=== PATIENT | female | born 1930 | race Caucasian/White ===

== ENCOUNTER 2016-12-21 13:11 | Inpatient (IN) | payer OTHER ==
[~2016-12-21] VITALS: Ht 162.6 cm; Wt 74.1 kg
--- NOTE | ~2016-12-21 | EKG ---
[address] [place] [address] ELECTROCARDIOGRAM REPORT Name: LAWSON BRASWELL Room #: 217-P [facility] IN .R.#: [id number] Admission: 12/21/16 Attend Phys: Sean Harding MD Discharge: Date of : 30 Report #: [id number] THIS REPORT FOR: //name// 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 : 1930 Requested By: Apolinar Esparza Order Number: [id number] MD: Anthony Sommer Measurements Intervals [place] Rate: 98 P: 5 ID: 137 QRS: -28 QRSD: 87 T: 47 QT: 336 QTc: 430 Interpretive Statements Sinus rhythm Inferior infarct, old Compared to ECG 09/22/2016 17:07:46 No significant changes Electronically Signed On 12-22-2016 9:02:50 INSURANCE CLAIM REPRESENTATIVE by Anthony Sommer [email or web address] <ELECTRONICALLY SIGNED> By: Anthony Sommer MD, [facility] 12/22/16 0902 1412 141 Anthony Sommer MD, [facility] /EPI
--- NOTE | ~2016-12-21 | P ---
[facility] [place] [address] PROCEDURE REPORT Name: LAWSON BRASWELL Room #: 243-P [facility] IN .R.#: [id number] Admission: 12/21/16 Attend Phys: Sean Harding MD Discharge: Date of : 30 Report #: [id number] THIS REPORT FOR: //name// CC: FAM vernon Harding MD DATE OF SERVICE: 12/23/2016 INDICATION: Left lung infiltrate, persistent with possible left lung mass and plugging in the lingular bronchus, ASA classification class 3. PROCEDURE NOTATION: After discussing risks and benefits of planned procedure as best I could with the patient due to hearing difficulties, discussed with family who is at the bedside, who agreed to proceed, the patient was brought to the OR room 349, received 4% lidocaine nebulized to anesthetize the upper respiratory tract. The patient received conscious sedation, a total of 1 mg of Versed and 12.5 mg of fentanyl were utilized during the procedure to provide adequate sedation. Once complete, bronchoscope was passed through an oral biteblock until the vocal cords were visualized. Vocal cords moved appropriately both before and after the procedure, 1% lidocaine was instilled in the vocal cords to provide topical anesthesia. Bronchoscope was then passed in the trachea, 1% lidocaine was instilled in the tracheobronchial tree bilaterally to provide topical anesthesia once complete airways were surveyed. FINDINGS: Mainstem, lobar, segmental and subsegmental bronchi were explored as best as possible. Right-sided structures appeared normal, with no significant anatomic variation. The right lower lobe structures appeared normal except for thin white secretions noted emanating from the left lower lobe bronchus. The left upper lobe had some lingular edema. There appeared to be a yellow abnormality to the inferior lingular bronchus. Protected specimen brush was obtained in the area of the left lower lobe with thin white secretions emanating. Cytologic brushes and biopsies were obtained in the lingular airways and sent for cytologic and histopathologic test. Washings from this area were sent for cultures and cytology. The patient had some hypertension and reverted back to atrial fibrillation with rapid ventricular response post-procedure. The patient's fluid bolused to 500 mL and transferred to ICU for further care. <ELECTRONICALLY SIGNED> By: Tony Colbert MD 12/24/16 1122 1732 0133 Tony Colbert MD /nt
--- NOTE | ~2016-12-21 | CNG ---
[facility] [place] [address] CYTO-NONGYN REPORT PROCEDURE Name: FRANC BRASWELL Room #: 217-P ADM IN M.R.#: [id number] Admission: 12/21/16 Date of : 30 Discharge: Report #: [id number] Path Case #: [id number] CYTOPATHOLOGY REPORT COLLECTION DATE: 12/23/2016 RECEIVED DATE: 12/24/2016 SUBMITTING PHYS: Dr. Tony Colbert OTHER PHYS: Dr. Sean Harding CLINICAL HISTORY: Pneumonia/ AFIB RVR. SPECIMEN(S) RECEIVED: A.Bronchial brushings, RADHA B.Bronchoalveolar lavage, RADHA C.Bronchial brush rinse, RADHA * * * * * * * * * * * * FINAL DIAGNOSIS: A. Bronchial brushings, RADHA: Atypical cells identified. - Atypical/highly reactive bronchial epithelial cells and squamous cells identified in a marked acute inflammatory cell background. B. Bronchoalveolar lavage, RADHA: - No malignant cells identified. -Few reactive bronchial cells in a marked acute inflammatory cell background. C. Bronchial brush rinse, RADHA: Atypical cells identified. - Atypical/highly reactive bronchial epithelial cells and squamous cells identified in a marked acute inflammatory cell background. COMMENT: Cytomorphological evaluation is limited by the obscuring acute inflammation/necroinflammatory debris and air-drying artifact. Atypical epithelial cells are identified amongst highly reactive bronchial epithelial cells and unremarkable bronchial epithelial cells. The atypia is favored to be reactive. Clinical, bronchoscopic and radiographic correlation is required. Please see also the bronchial biopsy ([id number]). The case was discussed with Dr. Amalia Colbert on 12/27/16 at approximately 3:45 PM. (CLW:wale; d/t: 12/27/2016) PATHOLOGIST: Glendy Crow M.D. REPORT ELECTRONICALLY SIGNED BY: Glendy Crow M.D. DATE/TIME: 12/27/2016 16:13 * * * * * * * * * * * * GROSS PATHOLOGY: A. Bronchial brushings, RADHA: The specimen is labeled "Franc Braswell [address] [address] CYTO-NONGYN REPORT PROCEDURE Name: FRANC BRASWELL Room #: 217-P [facility] IN [facility]#: [id number] Admission: 12/21/16 Date of : 30 Discharge: Report #: [id number] Path Case #: [id number] A" and consists of four fixed slides. B. Bronchoalveolar lavage, RADHA: The specimen is submitted unfixed, labeled "Franc Braswell". Received by the Cytology Department is five mL of cloudy pink fluid. One ThinPrep slide was prepared. C. Bronchial brush rinse, RADHA: The specimen is labeled "Franc Braswell Ar" and consists of a brush tip in fixative. One ThinPrep slide was prepared. (CLT 12.24.2016) SHOPPER(S): CHILANGO Gary(ASCP) INITIAL CPT CODE(S): A; 78890 B; 36816 C; 58716 Professional services performed by [facility] at [facility] [address], [place] [address] Technical services performed by [facility] at [address] [place] [address], [address], [place] [address]. [facility] [address] [place] [address], [address] [place] [address] PHONE: [phone] DIRECTOR: Rocael Barnhart M.D. * * * END OF REPORT * * *
--- NOTE | ~2016-12-21 | S ---
[facility] [place] [address] SURGICAL PATH RPT PROCEDURE Name: FRANC BRASWELL Room #: 217-P ADM IN M.R.#: [id number] Admission: 12/21/16 Date of : 30 Discharge: Report #: [id number] Path Case #: [id number] PATHOLOGY REPORT COLLECTION DATE: 12/23/2016 RECEIVED DATE: 12/24/2016 SUBMITTING PHYS: Dr. Tony Colbert OTHER PHYS: Dr. Sean Harding SPECIMEN(S) RECEIVED: A.Left upper lobe biopsy forceps * * * * * * * * * * * * FINAL DIAGNOSIS: "Left upper lobe biopsy forceps", bronchial biopsy: - Bronchial wall with benign ciliated respiratory epithelium, detached metaplastic squamous epithelium and areas of acute and chronic inflammation, necrosis, granulation tissue and fibrin deposition. (See comment) COMMENT: The focal metaplastic squamous epithelium that is noted is also acutely inflamed. No epithelial malignancy is identified. No polarizable material is identified. Clinical and radiographic correlation is required. Please see also the cytologic specimen ([id number]). The case is discussed with Dr. Amalia Colbert on 12/27/16 at approximately 3:45 PM. (CLW:wale; d/t: 12/27/2016) PATHOLOGIST: Glendy Crow M.D. REPORT ELECTRONICALLY SIGNED BY: Glendy Crow M.D. DATE/TIME: 12/27/2016 16:20 * * * * * * * * * * * * GROSS PATHOLOGY: The specimen is received in formalin labeled "Franc Eugenew, biopsy forceps," and verified is "RADHA biopsy" via phone. Received are multiple segments of pale turner soft tissue measuring 0.4 x 0.4 x 0.1 cm in aggregate dimensions. The specimen is filtered and entirely submitted in cassette A1. (CAA; 12/24/2016) CLINICAL HISTORY: Pneumonia, AFIB RVR [facility] [address] [address] SURGICAL PATH RPT PROCEDURE Name: FRANC BRASWELL Room #: 217-P ADM IN ..#: [id number] Admission: 12/21/16 Date of : 30 Discharge: Report #: [id number] Path Case #: [id number] INITIAL CPT CODE(S): A; 72516 Professional services performed by [facility] at [address], [place] [address] Technical services performed by [facility] at [address] [place] [address], [facility] [address] [place] [address]. [facility] [address] [place] [address] PHONE: [phone] DIRECTOR: Rocael Barnhart M.D. * * * END OF REPORT * * *
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
--- NOTE | ~2016-12-21 | EKG ---
[address] [address] ELECTROCARDIOGRAM REPORT Name: LAWSON BRASWELL Room #: 217-P [facility] IN .R.#: [id number] Admission: 12/21/16 Attend Phys: Sean Harding MD Discharge: Date of : 30 Report #: [id number] THIS REPORT FOR: //name// [facility] Test Date: 2016-12-22 Test Time: 08:16:28 Pat Name: LAWSON BRASWELL Department: Room: 217 Gender: F Glove Pairer: Areli IRIZARRY : 1930 Requested By: Katherine Watkins Order Number: [id number] MD: Anthony Sommer Measurements Intervals [place] Rate: 76 P: 28 DE: 140 QRS: 6 QRSD: 97 T: 40 QT: 429 QTc: 483 Interpretive Statements Sinus rhythm No significant abnormality Compared to ECG 09/22/2016 17:07:46 Myocardial infarct finding no longer present Sinus rhythm has replaced atrial fibrillation Electronically Signed On 12-22-2016 9:14:12 GUEST RELATION OFFICER by Anthony Sommer [email or web address] <ELECTRONICALLY SIGNED> By: Anthony Sommer MD, [facility] 12/22/16913 5 5 Anthony Sommer MD, [facility] /EPI
--- NOTE | ~2016-12-21 | EKG ---
[place] [address] [address] [place] [address] ELECTROCARDIOGRAM REPORT Name: LAWSON BRASWELL Room #: 243-P [facility] IN .R.#: [id number] Admission: 12/21/16 Attend Phys: Sean Harding MD Discharge: Date of : 30 Report #: [id number] THIS REPORT FOR: //name// [facility] Test Date: 2016-12-23 Test Time: 17:31:25 Pat Name: LAWSON BRASWELL Department: Room: [facility] Gender: F Speech Language Pathologist Prn: Karma GORE : 1930 Requested By: Tony Colbert Order Number: [id number] MD: Anthony Sommer Measurements Intervals [place] Rate: 159 P: 0 CO: 76 QRS: -13 QRSD: 85 T: 120 QT: 295 QTc: 480 Interpretive Statements Atrial fibrillation with a rapid ventricular response Nonspecific ST and T wave abnormality Compared to ECG 12/22/2016 08:16:28 Atrial fibrillation has replaced sinus rhythm Electronically Signed On 12-24-2016 8:48:50 SENIOR SALESFORCE DEVELOPER by Anthony Sommer [email or web address] <ELECTRONICALLY SIGNED> By: Anthony Sommer MD, [facility] 12/24/16 0848 1731 173 Anthony Sommer MD, [facility] /EPI
--- NOTE | ~2016-12-21 | EKG ---
[address] [address] ELECTROCARDIOGRAM REPORT Name: LAWSON BRASWELL Room #: 243-P [facility] IN .R.#: [id number] Admission: 12/21/16 Attend Phys: Sean Harding MD Discharge: Date of : 30 Report #: [id number] THIS REPORT FOR: //name// [facility] Test Date: 2016-12-23 Test Time: 07:58:55 Pat Name: LAWSON BRASWELL Department: Room: [facility] Gender: F Asw Specialist: Areli IRIZARRY : 1930 Requested By: Sean Harding Order Number: [id number] MD: Anthony Sommer Measurements Intervals [place] Rate: 85 P: 45 SD: 134 QRS: 9 QRSD: 91 T: 50 QT: 396 QTc: 471 Interpretive Statements Sinus rhythm No significant abnormality Compared to ECG 12/22/2016 08:16:28 No significant changes Electronically Signed On 12-24-2016 8:31:08 ART CRITIC by Anthony Sommer [email or web address] <ELECTRONICALLY SIGNED> By: Anthony Sommer MD, [facility] 12/24/16 0831 075 075 Anthony Sommer MD, FAC /EPI
--- NOTE | ~2016-12-21 | 2DMMODE ---
[facility] [address] [place] [address] 2 D/M-MODE ECHOCARDIOGRAM Name: LAWSON BRASWELL Room #: 217-P [facility] IN [facility]#: [id number] Admission: 12/21/16 Attend Phys: Sean Harding, Discharge: Date of : 30 Date of Service: 12/22/16 1027 Report #: [id number] THIS REPORT FOR: //name// APPROVED REPORT EXAM: Comprehensive 2D, Doppler, and color-flow Echocardiogram Patient Location: In-Patient/Bedside Room 217 Blood Pressure: 128/56 mmHg HR: 74 bpm Rhythm: NSR Other Information Study Quality: Good Indications Atrial Fibrillation Hx: COPD 2D Dimensions RVDd: 36.42 mm LVEF(%): 57.63 (>50%) IVSd: 9.73 (7-11mm) LVOT Diam: 19.95 (18-24mm) LVDd: 42.68 mm PWd: 8.71 (7-11mm) Ascending Aorta: 38.00 mm LVDs: 29.85 (25-40mm) Aortic Root: 31.00 mm [place]'s LVEF: 57.63 % Volumes Left Atrial Volume (Systole) Single Plane 4CH: 45.64 mL Single Plane 2CH: 55.22 mL LA ESV Index: 32.00 mL/m2 Aortic Valve AoV Peak Jose J.: 1.79 m/s AO Peak Gr.: 12.87 mmHg LV Max P.21 mmHg LV Max: 1.25 m/s Mitral Valve MV PHT: 52.42 ms MV E Max Jose J.: 1.10 m/s E/A Ratio: 1.0 MV A Jose J.: 1.15 m/s MV Decel. Time: 180.76 ms [facility] [place] [address] [place] [address] 2 D/M-MODE ECHOCARDIOGRAM Name: LAWSON BRASWELL Room #: 217-P [facility]#: [id number] Admission: 12/21/16 Attend Phys: Sean Harding, Discharge: Date of : 30 Date of Service: 12/22/16 1027 Report #: [id number] TDI E/Lateral E': 15.00 E/Medial E': 14.00 Pulmonary Valve PV Peak Jose J.: 0.79 m/s PV Peak Gr.: 2.47 mmHg Tricuspid Valve TR Peak Jose J.: 2.80 m/s RAP Estimate: 10.00 mmHg TR Peak Gr.: 31.33 mmHg RVSP: 41.00 mmHg Left Ventricle The left ventricle is normal size. There is normal LV segmental wall motion. There is normal left ventricular wall thickness. Left ventricular systolic function is normal. LVEF is 50-55%. Mild diastolic dysfunction is present (impaired relaxation pattern). Right Ventricle The right ventricle is normal size. The right ventricular systolic function is normal. Atria Left atrium is borderline dilated. The right atrium size is normal. Aortic Valve Aortic valve is mildly calcified. Trace aortic regurgitation. There is no aortic valvular stenosis. Mitral Valve There is mitral annular calcification. Mild regurgitation. Tricuspid Valve The tricuspid valve is normal in structure. There is mild tricuspid regurgitation. The right atrial pressure is estimated at 10 mmHg. Right ventricular systolic pressure is estimated at 41 mmHg. There is mild-moderate pulmonary hypertension. Pulmonic Valve The pulmonary valve is normal in structure. Trace pulmonic regurgitation. Great Vessels The aortic root is normal in size. Ascending aorta is mildy dilated. The IVC is dilated. [facility] [address] [place] [address] 2 D/M-MODE ECHOCARDIOGRAM Name: LAWSON BRASWELL Room #: 217-P [facility] IN ..#: [id number] Admission: 12/21/16 Attend Phys: Sean Harding, Discharge: Date of : 30 Date of Service: 12/22/16 1027 Report #: [id number] Pericardium There is no pericardial effusion. <Conclusion> Left ventricular systolic function is normal. LVEF is 50-55%. Grade I diastolic dysfunction Left atrium is borderline dilated. Aortic valve is mildly calcified, no stenosis. Trace insufficiency There is mitral annular calcification. Mild regurgitation. There is mild tricuspid regurgitation. The right atrial pressure is estimated at 10 mmHg. Right ventricular systolic pressure is estimated at 40 mmHg. There is no pericardial effusion. <ELECTRONICALLY SIGNED> By: Anthony Sommer MD, FACC 12/22/16 1027 1027 1027 Anthony Sommer MD, FAC /INF
--- NOTE | ~2016-12-21 | HC ---
[facility] [place] [address] CONSULTATION Name: LAWSON BRASWELL Room #: 217-P [facility] IN M.R.#: [id number] Admission: 12/21/16 Attend Phys: Sean Harding MD Discharge: 12/29/16 Date of : 30 Report #: [id number] THIS REPORT FOR: //name// CC: FAM unknown Sean Harding DATE OF SERVICE: 12/24/2016 HISTORY OF PRESENT ILLNESS: This lady is actually known to me from a consult performed a number of years ago. The lady indeed does suffer from paranoid schizophrenia, but agree with Dr. Harding's description that it has been fairly mild, in that, she has been well compensated most of her life with medication and able to function with relatively little dysfunction or pathology. It appears that here lately, she has developed delirium and encephalopathy with respect to malnutrition and pneumonia. They have stopped her Seroquel because of concerns of a cardiac nature, I believe. The patient is confused, unable to really interact with me much. She is fixated upon the compression stockings. PAST PSYCHIATRIC HISTORY: The patient does have a long-standing psychiatric illness. She was seen by us on the consultation service all the way back in 2011. At that time, we opined that changing from Mellaril to Seroquel would be improvement from the standpoint of sedation and bradykinesia. I believe, she has been on Seroquel ever since and it appears that she has functioned quite well on this medication. It is not clear to me if she was continuing to simply get the Seroquel from Dr. Harding or if she was actually followed up with a psychiatrist. PAST MEDICAL HISTORY: She has a complex medical history that includes pneumonia, history of asthma, currently suffering from encephalopathy, GI bleed, malnutrition, respiratory failure, B12 deficiency, renal failure and chronic kidney disease. SOCIAL HISTORY: I believe she has a caregiver. She was kicked out of the house by her father and was essentially adopted into a family with the surname "Jhonny". She has been Dr. Harding's patient for many decades. He has nicely summarized the patient's psychiatric and psychosocial history. Presumably, the "parents" who "adopted" the patient would now be , but I believe that her "step-siblings" continue to interact with and keep tract for her. It is not completely clear to me who is her primary caregiver or support system at this time. There are no active substance abuse issues. CURRENT MEDICATIONS: Her current regimen had included Seroquel and Depakote and I believe the Seroquel has just been held now. She was also on nystatin, Requip, Solu-Medrol and metoprolol. ALLERGIES: PENICILLIN, CEPHALOSPORIN, CEPHALEXIN and AMBIEN. [facility] [address] [place] [address] CONSULTATION Name: LAWSON BRASWELL Room #: 217-P [facility] IN M.R.#: [id number] Admission: 12/21/16 Attend Phys: Sean Harding MD Discharge: 12/29/16 Date of : 30 Report #: [id number] MENTAL STATUS EXAMINATION: female, confused, somewhat internally preoccupied, disorganized thought process. No suicidal ideation, no homicidal ideation. Some hallucinations earlier, I believe, per the medical record, but not now. Insight and judgment limited. DIAGNOSES: AXIS I: Encephalopathy, chronic paranoid schizophrenia. AXIS II: Deferred. AXIS III: See past medical history. AXIS IV: Severe. AXIS V: 20. RECOMMENDATIONS: I agree with holding Seroquel right now if there are cardiac concerns, though a lower dose may be useful in delirium, especially if there is worsening insomnia, agitation, impulsivity or psychosis. If she tolerates the Depakote, we could also titrate up on this agent. It does not appear she is having or will have any ill effects from this, as hepatic function seems adequate. There is a history of adverse drug reaction to Haldol. So, Depakote may be a better choice at this time and when she clears from the delirium, may need to consider antipsychotic other than Seroquel. Though she has been on this medication a long time, it is possible she is not tolerating more so because of concurrent delirium. <ELECTRONICALLY SIGNED> By: Bartolo Long MD 12/31/16 1512 1035 1242 Bartolo Long MD /nt
--- NOTE | ~2016-12-21 | HC ---
[facility] [place] [address] CONSULTATION Name: LAWSON BRASWELL Room #: 217-P [facility] IN ..#: [id number] Admission: 12/21/16 Attend Phys: Sean Harding MD Discharge: Date of : 30 Report #: [id number] THIS REPORT FOR: //name// CC: FAM unknown Sean Harding DATE OF SERVICE: 12/23/2016 INFECTIOUS DISEASE CONSULTATION ATTENDING PHYSICIAN: Sean Harding M.D. REASON FOR CONSULTATION: Cavitary pneumonia. HISTORY OF PRESENT ILLNESS: An 86-year-old white woman admitted through the emergency room with altered mental status, found to be having left lower lobe pneumonia and atrial fibrillation with rapid ventricular response. The patient, on admission, had significant leukocytosis with broad spectrum antibiotic; this is improved. A CT scan of the chest was ordered by Dr. Colbert and revealed left-sided cavitary pneumonia. On account of this, ID opinion is requested. At present, the patient is sitting and having lunch delivered to her and I discussed the patient's situation with her nurse, Laisha, and I believe the patient needs to have a speech evaluation. The patient unable to give me any information whatsoever. PAST MEDICAL HISTORY: COPD - bronchial asthma. 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 Schizophrenia. Depression. Chronic iron-deficiency anemia. History of duodenal arteriovenous malformation, gastrointestinal bleed in the past. Previous episode of esophagitis. Paroxysmal atrial fibrillation. Diabetes mellitus type 2. Recurrent tubular adenomas. DRUG ALLERGIES: MOXIFLOXACIN, ADVAIR, CEPHALEXIN, PENICILLIN and ZOLPIDEM. SOCIAL HISTORY: No tobacco. No alcohol. The patient has developed progressive cognitive impairment. MEDICATIONS: The patient is on treatment with vancomycin 500 mg IV every 12 hours, meropenem 500 mg IV every 8 hours and methylprednisolone 40 mg IV every 12 hours. The vancomycin was discontinued today. The patient is on 250 mg b.i.d., nystatin topical to rash, ropinirole 0.5 mg p.o. b.i.d., quetiapine fumarate 600 mg at bedtime, enoxaparin 60 mg subQ b.i.d., diltiazem 240 mg daily and magnesium and potassium supplementation per protocol. REVIEW OF SYSTEMS: Unable to obtain. PHYSICAL EXAMINATION: [address] [address] CONSULTATION Name: LAWSON BRASWELL Room #: 217-P [facility] IN .R.#: [id number] Admission: 12/21/16 Attend Phys: Sean Harding MD Discharge: Date of : 30 Report #: [id number] GENERAL: Elderly woman, not toxic looking. VITAL SIGNS: Temperature maximum recorded since admission is 99.8; pulse on admission 174, today it is down to 89 per minute; respirations 20 and BP 156/77. The patient is on nasal supplementation of oxygen at 2 liters per minute and saturations are 93%. HEENT: Head normocephalic and atraumatic. Pupils reactive. Mouth edentulous. NECK: Supple. LUNGS: Crackles, left lung base. HEART: S1, S2. No gallop. ABDOMEN: Soft. No masses or megaly. PELVIC AND RECTAL EXAMINATION: Deferred. EXTREMITIES: No clubbing or cyanosis. NEUROLOGIC: Unable to evaluate. LABORATORY DATA: Sodium 139, potassium 3.3, BUN 24, creatinine 1.1 and glucose 200. Albumin 1.6 g/dL. Protime 13.4 seconds, INR 1.3. On admission, white blood cell count 26,200, hemoglobin 10.5 g/dL and platelets 368,000. Repeat CBC today revealed her white blood cell count has dropped to 16,900. There is a drop of hemoglobin up to 9.7 g/dL and platelets remain normal at 279,000. There is a vancomycin trough obtained today at 12. The MRSA screen is negative. The respiratory viral panel by PCR is pending at the time of this dictation. Vitamin D level low. Urinalysis revealed proteinuria, ketonuria, possibly bilirubin, 3+ blood. The microscopic exam revealed pyuria and bacteriuria. The ABGs on admission revealed a pH of 7.48, pCO2 of 33, pO2 of 57 and bicarbonate 25. These set of gases is on room air. MICROBIOLOGY DATA: Urine negative for Legionella and Streptococcus pneumoniae antigen and blood cultures remain negative at the time of this dictation. RADIOLOGY EVALUATION: A chest x-ray done on admission revealed extensive pneumonia, left upper and lower lung. CT scan of the brain revealed severe periventricular white matter disease that has progressed since last CT in 2013. [address] CT scan of the chest revealed extensive left upper lobe infiltrate with thick-walled cavitary lesions on the lingula and possible pulmonary abscess necrotic tumor. A small left pleural effusion and moderate hiatal hernia. ASSESSMENT: 1. Cavitary pneumonia, left lung. Rule out endobronchial lesion. 2. Chronic obstructive pulmonary disease, bronchial asthma. 3. Microvascular dementia. 4. Anemia of chronic disease. 5. Malnutrition. 6. Possible urinary tract infection. SUGGESTIONS: At present, the likely organism causing the patient's pneumonia is an anaerobic organism. Her MRSA screen was negative. Consequently, I agree [facility] [address] [place] [address] CONSULTATION Name: LAWSON BRASWELL Room #: 217-P ADM IN [facility].#: [id number] Admission: 12/21/16 Attend Phys: Sean Harding MD Discharge: Date of : 30 Report #: [id number] with discontinuation of vancomycin. Must continue meropenem. We will get speech therapist to evaluate the patient. Discussed the patient's situation with the patient's nurse, Laisha and we will discuss situation with Dr. Harding. Dr. Sean Harding, thank you for requesting my suggestions in the care of your patient. <ELECTRONICALLY SIGNED> By: Mickey Corado MD 12/24/16 1225 1238 1336 Mickey Corado MD /nt
--- NOTE | ~2016-12-21 | EKG ---
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 : 1930 Requested By: Apolinar Esparza Order Number: [id number] MD: Anthony Sommer Measurements Intervals [place] Rate: 173 P: WI: QRS: -24 QRSD: 80 T: 137 QT: 280 QTc: 475 Interpretive Statements Atrial fibrillation with rapid V-rate Inferior infarct, old Nonspecific ST segment abnormality Compared to ECG 09/22/2016 17:07:46 Sinus rhythm no longer present ST and T wave abnormalities are present Electronically Signed On 12-22-2016 9:04:25 CALL CENTER RN by Anthony Sommer [email or web address] <ELECTRONICALLY SIGNED> By: Anthony Sommer MD, [facility] 12/22/16 0904 1620 1620 Anthony Sommer MD, [facility] /EPI
--- NOTE | ~2016-12-21 | EKG ---
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 : 1930 Requested By: Katherine Watkins Order Number: [id number] MD: Anthony Sommer Measurements Intervals [place] Rate: 71 P: -3 [place]: 154 QRS: -21 QRSD: 81 T: 58 QT: 437 QTc: 475 Interpretive Statements Sinus rhythm Inferior infarct, old Anterior infarct, old Compared to ECG 12/23/2016 17:31:25 Sinus rhythm has replaced atrial fibrillation Electronically Signed On 12-29-2016 8:10:14 DEVELOPMENT ANALYST by Anthony Sommer [email or web address] <ELECTRONICALLY SIGNED> By: Anthony Sommer MD, [facility] 12/29/16 0810 1006 1006 Anthony Sommer MD, [facility] /EPI
--- NOTE | ~2016-12-21 | HC ---
[facility] [place] [address] CONSULTATION Name: LAWSON BRASWELL Room #: 243-P ADM IN M.R.#: [id number] Admission: 12/21/16 Attend Phys: Sean Harding MD Discharge: Date of : 30 Report #: [id number] THIS REPORT FOR: //name// CC: FAM unknown Sean Harding MD DATE OF SERVICE: 12/21/2016 REFERRING PROVIDER: Sean Harding MD REASON FOR CONSULTATION: Pulmonary infiltrates. HISTORY OF PRESENT ILLNESS: Our group was asked to see the patient in consultation while hospitalized at [facility], brought to the emergency department, records unclear, brought in by emergency medical service, has had altered mental status, confusion and had been somewhat incontinent. . According to the EMS, the patient was found to have altered mental status, found by a friend. In the emergency department was noted to have significant left lung infiltrates as well as atrial fibrillation with rapid ventricular response and had been given vancomycin, Zosyn as well as diltiazem. Currently on diltiazem drip to control heart rate. The patient is very confused but does not appear distressed upon my evaluation. Upon my arrival, the patient was on no supplemental oxygen. No oximetry monitoring ongoing. ALLERGIES: Include CEPHALOSPORINS, PENICILLINS, AMBIEN. OUTPATIENT MEDICATIONS: Include ropinirole, divalproex, diltiazem, cyanocobalamin, tolterodine, meloxicam, albuterol, aspirin, zafirlukast, quetiapine, supplemental oxygen and possibly prednisone. PAST MEDICAL HISTORY: 1. Schizophrenia. 2. Persistent asthma and COPD. 3. Chronic hypoxemia. SOCIAL HISTORY: Unobtainable due to current status. FAMILY HISTORY: Unobtainable due to current neurologic status. REVIEW OF SYSTEMS: Otherwise, unobtainable due to current neurologic status. PHYSICAL EXAMINATION: VITAL SIGNS: Afebrile, pulse 120s and regular, respiratory rate 18, blood pressure 123/79. GENERAL: This is an elderly woman in no distress. [address] [address] CONSULTATION Name: LAWSON BRASWELL Room #: 243-P [facility] IN M.R.#: [id number] Admission: 12/21/16 Attend Phys: Sean Harding MD Discharge: Date of : 30 Report #: [id number] ENT: Mucosa moist with edentulous mouth. NECK: Supple, no lymphadenopathy. LUNGS: Diminished markedly on the left. The patient cannot cooperate with deep inspiratory efforts. HEART: Irregular. No murmurs noted. ABDOMEN: Obese, soft, nontender, no masses. EXTREMITIES: Without significant edema. They are warm with 2+ pulses. LABORATORY DATA: White blood cell count 26,000, hemoglobin 11, hematocrit 33, platelet count 368. Chemistry profile revealed sodium 134, potassium 3.7, chloride 97, bicarbonate 24, BUN 20, creatinine 1.3, glucose 135. Arterial blood gas revealed pH 7.49, pCO2 of 34, pO2 of 58, bicarbonate 25. Lactate was 1.55 on room air. Urinalysis revealed proteinuria, ketonuria. White blood cells in the urine is 16-25. INR 1.3. IMPRESSION: 1. Left mid lung infiltrate noted on chest radiograph with significant opacification in this area. There also appears to be a small left pleural effusion. Will need to be followed and treated for pneumonia. 2. Probable urinary tract infection. 3. Atrial fibrillation with rapid ventricular response. 4. Altered mental status, likely combination of above, probably some underlying dementia. 5. Schizophrenia. 6. Hard of hearing. SUGGEST: 1. Continue with broad-spectrum antimicrobials. The patient actually did not receive Zosyn, but received Levaquin, vancomycin, azithromycin. Would change Levaquin and meropenem for now. 2. Sputum and blood cultures, urine cultures. 3. Steroids with taper. 4. Bronchodilators. 5. Follow up chest radiograph. 6. The patient may need thoracentesis if significant pleural effusion develops. 7. Defer atrial fibrillation management to cardiology. 8. Continuous oximetry monitoring and supplemental oxygen. 9. Additional recommendations to follow. Thank you for requesting our suggestions. <ELECTRONICALLY SIGNED> By: Tony Colbert MD 12/24/16 1123 2046 2335 Tony Colbert MD /nt
--- NOTE | ~2016-12-21 | D ---
[facility] [place] [address] DISCHARGE SUMMARY Name: LAWSON BRASWELL Room #: 217-P [facility] IN ..#: [id number] Admission: 12/21/16 Attend Phys: Sean Harding MD Discharge: 12/29/16 Date of : 30 Report #: [id number] THIS REPORT FOR: //name// CC: FAM unknown Sean Harding DATE OF SERVICE: 12/29/2016 SUMMARY OF HISTORY AND PHYSICAL: Nurse Special state they were called to their house because the patient had a change in level of consciousness for about 3 hours. When she was brought to the Emergency Room, she was found to have been incontinent of urine and stool. On examination, there was normal lung findings on the left hand side superior and inferior with decreased breath sounds and wheezes and consolidative breath sounds. Chest x-ray indicated infiltrates on the left side. She was hypoxic. She required admission for treatment of acute respiratory failure and/or pneumonia. Also, in the Emergency Room, she developed rapid ventricular response to atrial fibrillation. This occurred and was documented while she was in the Emergency Room. She has had this before when she has been ill, and this mandated her being admitted to a critical care telemetry bed. SUMMARY OF HOSPITAL COURSE: Severe sepsis was present on admission: known infection with pueumonia, tachycardia of 174, tachypnea 24 (>20), anion gap 13 (>11), leukocytosis 26K, qualified for severe with organ dysfunction PaO2 57.6, increased anion gap, and altered mental status. Over the next several days, her hypoxemia, improved, her white blood cell count improved, and she received intravenous antibiotics and aerosolized bronchodilator treatments for pneumonia under the direction of the Pulmonary Medicine Service. CT showed a left lingular infiltrate and atelectasis, possible mass, possible cavitation with suggestion of an endobronchial obstruction. She then underwent bronchoscopy, what appeared to be an endobronchial lesion, was actually able to be pushed against a think white secretions issued fourth. Brushings and washings and cultures were obtained. During the procedure, the patient redeveloped atrial fibrillation with rapid ventricular response, was bolused with 500 mL of saline and transferred to the Intensive Care Unit for further care. In the Intensive Care Unit best percussion was added and she was treated with IV [facility] [address] [place] [address] DISCHARGE SUMMARY Name: LAWSON BRASWELL Room #: 217-P [facility] IN [facility].#: [id number] Admission: 12/21/16 Attend Phys: Sean Harding MD Discharge: 12/29/16 Date of : 30 Report #: [id number] Cardizem IV amiodarone under the direction of cardiology service with a return of her rate to acceptable levels. Next, day, she was much better. Urine retention was noted and she was straight cathed as needed. She steadily improved. Psychiatric services assisted with choosing and dosing her medications. Her Depakote levels were quite low and it was felt that the meropenem antibiotic might be lowering the levels, according to research done from the Department of the hospital pharmacy staff. She developed several days of loose stools, C. diff test were negative, and loose stools resolved. She began to eat well. She had less problems with hearing voices. It was determined that the patient was starting to hear voices. Information then became available from Flex Barry, the , the official power of patent attorney/caregiver, santino lockhart, that the patient had been ill for about 10 days before the paramedics were called. She said "it just finally got to the point where somebody had to some things, so I called 911." It seemed like she was off all of her medications for the 10 days or so before coming to the hospital with her cavitary pneumonia. She went back into normal sinus rhythm. She continued to have some difficulty with urine retention. Elevated blood sugars were results of her intravenous corticosteroids, and her doses were tapered. Biopsy along with a bronchoscope showed only inflammation without findings of malignancy. Urine culture on admission showed only 40,000 CFU of normal genitourethral janet. Urine was negative for legionella pneumophilia antigen. Bacterial culture. The bronchoscopy showed only small amount of Streptococcus viridans and biopsy showed no malignancy to be present. She steadily improved and became more alert and more oriented. There were fewer confusing episodes of hearing voices at night. She continued to have episodes of urine retention that would then resolve. She was felt to have medically complex issues as well as profound weakness and was transferred to the [address] [place] [address] acute rehabilitation floor. Her rhythm remained controlled in normal sinus rhythm, on her amiodarone. LABORATORY DATA: Her creatinine was elevated at 1.3 on admission, and with rehydration dropped to 1.0 and 0.9. Magnesium levels were normal. Her albumin on admission was 1.6, adequate criteria for severe malnutrition. Troponins were negative. INR was 1.3. On admission, her white blood cell count was 26,000, hemoglobin was 10.5, 91% segs, 64% bands, forward left shift. [facility] [address] [place] [address] DISCHARGE SUMMARY Name: LAWSON BRASWELL Room #: 217-P [facility] IN [place]#: [id number] Admission: 12/21/16 Attend Phys: Sean Harding MD Discharge: 12/29/16 Date of : 30 Report #: [id number] Admitting valproic acid level was 0 showing she indeed had not been taking that medication. MRSA swab in the nares was negative. C. difficile test of the stools was negative. Acute respiratory viral panel was negative. Vitamin D level was very low at 10.8. Urinalysis showed 3+ blood on admission with 1+ leukocytes, 25% wbc's, 30 bacteria. Urine culture showed only 40,000 normal genital urethral janet. Arterial blood gas on room air in the Emergency Room showed a pH of 7.49, pCO2 of 33.9 and pO2 of 57.6 - for acute respiratory failure. 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 CT scan of the chest on December 22 showed thick walled cavitary components of the left upper lobe and the lingula with some in the lower lobe as well. There appeared to be an endobronchial plug or an endobronchial lesion in the lingular bronchus. Venous Dopplers were negative for DVT in both legs. CTA of the chest for PE protocol the following week showed an improvement in the consolidated infiltrate. It was negative for PE. DISCHARGE DIAGNOSES: 1. Acute cavitary left-sided abscess/pneumonia. 2. Acute renal failure from volume depletion. 3. Acute respiratory failure from the pneumonia. 4. Chronic obstructive pulmonary disease. 5. Rapid atrial fibrillation that was controlled with medications. 6. Sepsis, Severe - present on admission. 7. Toxic encephalopathy - improved. 8. Mild paranoid schizophrenia - improved with resumption of her medications. 9. Social situation - as she got sicker per caregiver/family seem to watch until after 7-10 days, one member finally called the paramedics. 10. Other medical problems as in the history and physical. PLAN: The patient is transferred to the rehabilitation unit for further treatment of the pneumonia and interventions are planned as well as strengthening. [facility] [address] [place] [address] DISCHARGE SUMMARY Name: LAWSON BRASWELL Room #: 217-P [facility] IN ..#: [id number] Admission: 12/21/16 Attend Phys: Sean Harding MD Discharge: 12/29/16 Date of : 30 Report #: [id number] ADDITIONAL DIAGNOSIS: Intermittent urine retention. By: [id number] Sean Harding MD /nt
[~2016-12-21 13:11] MED LIST: ACCOLATE10 MG PO; ACCOLATE20 MG PO; ADULT LOW DOSE81 MG PO; ADVIL PM CAPLE1 EACH PO; AFLURIA 2045 MCG/0.4; AGGRENOX CAPSU1 EACH PO; ALAVERT10 MG PO; ALBUTEROL NEB; ALPRAZOLAM 0.50.5 MG PO; AMBIEN 5 MG TABL5 M1 PO; ASA81BEC PO; AVAPRO 150 MG150 M1 PO; AZITHROMYCIN 2250 MG PO; B-12 COMPL1000 MCG/1 IJ; B12INJ IM; B12INJ SUBQ; BAYER CHEWABLE81 MG PO; BENTYL 20 MG TA20 M1 PO; CALCIUM 600 +1 EAC1 PO; CARDIZEM CD120 MG PO; CARDIZEM60 MG PO; CIPRO250 M2 PO; CO Q-10100 MG PO; COZAAR 50 MG TA50 M1 PO; COZAAR 50 MG TA50 M2 PO; COZAAR 50 MG TA50 MG PO; COZAAR100 MG PO; DARVOCET PO; DEPAKOTE 250MG250 M1 PO; DEPAKOTE125 MG PO; DESYREL100 MG PO; DESYREL150 MG PO; DESYREL50 MG PO; DILTIAZEM ER180 M2 PO; DILTIAZEM ER60 M1 PO; DIVALPROEX SOD125 M1 PO; DUONEB 2.5-0.5 M3 ML; DUONEB 2.5-0.5 M3 ML INH; FERRO-TIME325 MG PO; FLEXERIL PO; FLUOXETINE HCL10 M1 PO; HYDROCODONE-AP1 EAC6 PO; IBUPROFEN 800800 MG PO; IMDUR 30 MG TAB30 M1 PO; IRON PO; IRON325 PO; Ipratr-Albuterol 0.5-3 Mg/3 Ml INH; KLOR-CON 10 ER10 MEQ PO; KLOR-CON 1010 MEQ PO; LEVAQUIN 500 M500 MG PO; LEVOTHROID25 MCG PO; LEVOTHYROXIN0.025 M1 PO; LEVOTHYROXIN0.025 MG PO; LIDODERM 5% TOP; LORTAB 5 MG/5001 TA1 PO; MEDROLDOSEPACK PO; MIRALAX17 GM PO; MOBIC15 MG PO; NEURONTIN 300300 M1 PO; NORCO 5-325 TA1 EACH PO; NORVASC 5 MG TAB5 MG PO; ONDANSETRON HCL4 M2 PO; PERCOCET 5-3251 EACH PO; PNEUMOVAX25 MCG/0.5; POTASSIUM20 PO; PRAVACHOL40 MG PO; PREDNISONE 10 M10 MG PO; PREDNISONE 20 M20 MG PO; PREDNISONE 5 MG5 M1; PROTONIX40 M1 PO; PROTONIX40 M2 PO; PROZAC 10 MG CA10 M1 PO; PROZAC 10 MG CA10 MG PO; PROZAC10 MG PO; PT HOME MEDICATION MISCELL; QUETIAPINE FUM300 MG PO; REQUIP 0.25 M0.25 M1 PO; REQUIP 0.25 M0.25 MG PO; RESTORIL30 MG PO; SEROQUEL 100 M100 M1 PO; SEROQUEL 100 MG PO; SEROQUEL XR 30300 M1 PO; SINGULAIR 10 MG10 M1 PO; SINGULAIR PO; TEMAZEPAM 15 MG PO; TENORMIN25 MG PO; THIORIDAZINE HC50 M1 PO; THIORIDAZINE HC50 M2 PO; TOLTERODINE TART4 MG PO; TRAMADOL 50 MG50 MG PO; TRAZODONE HCL100 MG PO; VENTOLIN HFA 1818 GM INH; ZAFIRLUKAST10 MG PO; ZAFIRLUKAST20 MG PO; ZOFRAN4 MG PO; [UNRECOGNIZED DRUG - REMARK]
[2016-12-21 13:56] LABS: HEMOGLOBIN 10.5 gm/dL (12.0-15.0); MCH 27.5 pg (26.0-34.0); MCHC 31.8 g/dL (28.0-37.0); MCV 86.5 fL (80.0-100.0); RBC 3.81 mil/uL (4.20-5.00); RDW 18.7 % (10.5-14.5); WBC 26.2 thou/uL (4.0-11.0)
[2016-12-21 14:14] LABS: ANION GAP 13 mmol/L (7-16); APTT 25.9 Seconds (24.5-32.8); BUN 20 mg/dL (7-18); CALCIUM 9.2 mg/dL (8.5-10.1); CHLORIDE 97 mmol/L (98-107); CO2 24 mmol/L (21-32); CREATININE 1.3 mg/dL (0.6-1.3); GLUCOSE 135 mg/dL (70-99); INR 1.3; POTASSIUM 3.7 mmol/L (3.5-5.1); PROTIME 13.4 Seconds (9.3-11.4); SODIUM 134 mmol/L (136-145)
[2016-12-21 14:21] LABS: TROPONIN-I < 0.04 ng/mL (<0.04-0.07)
[2016-12-21 15:09] LABS: URINE BILIRUBIN 1+ (Negative); URINE BLOOD 3+ (Negative); URINE COLOR YELLOW; URINE GLUCOSE-RANDOM* NEGATIVE (Negative); URINE KETONES 1+ (Negative); URINE LEUKOCYTES-REFLEX 1+ (Negative); URINE PROTEIN (DIPSTICK) 2+ (Negative); URINE SPECIFIC GRAVITY 1.025 (1.003-1.035)
[2016-12-21 15:12] LABS: ICTOTEST (BILI CONFIRMATORY) Negative (Negative)
[2016-12-21 15:20] LABS: CASTS None Seen /LPF (None Seen); CRYSTALS None Seen /LPF (None Seen); SQUAMOUS 0-3 Few /LPF (0-3); TRANSITIONAL EPITHEL CELL 0-3 Few /LPF (None Seen)
[2016-12-21 15:21] LABS: URINE RBC 0-2 Rare /HPF (0-2)
[2016-12-21 16:43] LABS: ABG SAMPLE TYPE ARTERIAL; HCO3 25.1 mmol/L (22.0-26.0); LACTATE 1.55 mmol/L (0.5-2.0); O2(CT) 14.2 mL/dL (15.0-23.0); O2Hb 89.4 % (92.0-98.0); PCO2 33.9 mmHg (35.0-45.0); PO2 57.6 mmHg (80.0-100.0); pH 7.487 (7.360-7.450); sO2 92.2 % (92.0-98.0); tCO2 26.1 mmol/L (24.0-30.0)
[2016-12-21 16:44] LABS: STICK SITE R.BRACHIAL
[2016-12-22 04:00] LABS: HEMATOCRIT 27.8 % (37.0-47.0); MCH 27.7 pg (26.0-34.0); MCHC 32.2 g/dL (28.0-37.0); RBC 3.23 mil/uL (4.20-5.00); RDW 18.9 % (10.5-14.5); WBC 17.5 thou/uL (4.0-11.0)
[2016-12-22 04:09] LABS: ALBUMIN 1.6 g/dL (3.4-5.0); CALCIUM 8.1 mg/dL (8.5-10.1); POTASSIUM 3.3 mmol/L (3.5-5.1); TOTAL BILIRUBIN 0.6 mg/dL (<0.1-1.0); TOTAL PROTEIN 5.5 g/dL (6.4-8.2)
[2016-12-22 04:16] LABS: PLATELET COUNT 264 thou/uL (150-400)
[2016-12-22 04:17] LABS: MANUAL DIFF YES
[2016-12-22 05:30] LABS: ABSOLUTE NEUTROPHILS 16.6 thou/uL (1.4-8.2); ANISOCYTOSIS 2+; HYPOCHROMASIA SLIGHT; LARGE PLATELETS OCCASIONAL; TOTAL CELL COUNT 100
[2016-12-23 05:31] LABS: HEMATOCRIT 29.8 % (37.0-47.0); HEMOGLOBIN 9.7 gm/dL (12.0-15.0); MCHC 32.7 g/dL (28.0-37.0); MCV 85.6 fL (80.0-100.0); RBC 3.48 mil/uL (4.20-5.00); RDW 18.5 % (10.5-14.5); WBC 16.9 thou/uL (4.0-11.0)
[2016-12-23 05:45] LABS: CREATININE 1.1 mg/dL (0.6-1.3); MAGNESIUM 2.2 mg/dL (1.8-2.4); POTASSIUM 3.3 mmol/L (3.5-5.1)
[2016-12-23 18:29] LABS: ABG SAMPLE TYPE ARTERIAL; BE(vivo) -2.1 mmol/L (-2 to +3); HCO3 21.3 mmol/L (22.0-26.0); LACTATE 1.64 mmol/L (0.5-2.0); O2(CT) 13.2 mL/dL (15.0-23.0); O2Hb 92.3 % (92.0-98.0); PCO2 31.7 mmHg (35.0-45.0); PO2 69.4 mmHg (80.0-100.0); pH 7.446 (7.360-7.450); sO2 94.8 % (92.0-98.0); tCO2 22.3 mmol/L (24.0-30.0)
[2016-12-23 18:30] LABS: STICK SITE L.RADIAL
[2016-12-23 18:31] LABS: ABG COMMENT NO COMPLICATIOMS.
[2016-12-23 20:16] LABS: HEMATOCRIT 29.7 % (37.0-47.0); HEMOGLOBIN 9.5 gm/dL (12.0-15.0); MCH 27.1 pg (26.0-34.0); MCV 84.9 fL (80.0-100.0); RBC 3.5 mil/uL (4.20-5.00); WBC 16.3 thou/uL (4.0-11.0)
[2016-12-23 20:22] LABS: CALCIUM 8.8 mg/dL (8.5-10.1); CREATININE 1.1 mg/dL (0.6-1.3); MAGNESIUM 2.2 mg/dL (1.8-2.4); POTASSIUM 3.2 mmol/L (3.5-5.1)
[2016-12-24 06:27] LABS: HEMATOCRIT 26.6 % (37.0-47.0); HEMOGLOBIN 8.6 gm/dL (12.0-15.0); MCH 27.9 pg (26.0-34.0); MCHC 32.4 g/dL (28.0-37.0); RBC 3.09 mil/uL (4.20-5.00); RDW 18.6 % (10.5-14.5); WBC 13.9 thou/uL (4.0-11.0)
[2016-12-24 06:39] LABS: CALCIUM 8.3 mg/dL (8.5-10.1); POTASSIUM 3.5 mmol/L (3.5-5.1)
[2016-12-24 23:14] LABS: INFLUENZA B Negative (Negative); METAPNEUMOVIRUS Negative (Negative)
[2016-12-25 03:47] LABS: HEMATOCRIT 27.1 % (37.0-47.0); HEMOGLOBIN 8.6 gm/dL (12.0-15.0); MCH 27.6 pg (26.0-34.0); MCHC 31.8 g/dL (28.0-37.0); MCV 86.7 fL (80.0-100.0); RBC 3.13 mil/uL (4.20-5.00); RDW 19.3 % (10.5-14.5)
[2016-12-25 04:01] LABS: CALCIUM 8.2 mg/dL (8.5-10.1); CREATININE 1.2 mg/dL (0.6-1.3); POTASSIUM 3.7 mmol/L (3.5-5.1)
[2016-12-26 06:12] LABS: HEMATOCRIT 29.9 % (37.0-47.0); HEMOGLOBIN 9.6 gm/dL (12.0-15.0); MCH 27.6 pg (26.0-34.0); MCHC 32.1 g/dL (28.0-37.0); MCV 85.9 fL (80.0-100.0); RBC 3.48 mil/uL (4.20-5.00); RDW 19.2 % (10.5-14.5); WBC 18.2 thou/uL (4.0-11.0)
[2016-12-26 06:19] LABS: CALCIUM 7.9 mg/dL (8.5-10.1)
[2016-12-26 06:27] LABS: POTASSIUM 2.9 mmol/L (3.5-5.1)
[2016-12-27 06:51] LABS: HEMATOCRIT 29.3 % (37.0-47.0); HEMOGLOBIN 9.4 gm/dL (12.0-15.0); MCH 27.5 pg (26.0-34.0); MCHC 32.1 g/dL (28.0-37.0); MCV 85.8 fL (80.0-100.0); PLATELET COUNT 267 thou/uL (150-400); RBC 3.41 mil/uL (4.20-5.00); RDW 19.7 % (10.5-14.5); WBC 18.3 thou/uL (4.0-11.0)
[2016-12-27 07:00] LABS: MANUAL DIFF YES
[2016-12-27 07:26] LABS: ALBUMIN 1.4 g/dL (3.4-5.0); ALKALINE PHOSPHATASE 80 U/L (46-116); DIRECT BILIRUBIN < 0.1 mg/dL (<0.1-0.3); SGOT 13 U/L (15-37); SGPT 16 U/L (30-65); TOTAL BILIRUBIN 0.2 mg/dL (<0.1-1.0); TOTAL PROTEIN 5.4 g/dL (6.4-8.2)
[2016-12-27 07:39] LABS: ABSOLUTE NEUTROPHILS 16.7 thou/uL (1.4-8.2); ANISOCYTOSIS 2+; METAMYELOCYTES 1 %; TOTAL CELL COUNT 100
[2016-12-27 07:40] LABS: HYPOCHROMASIA 2+
[2016-12-27 07:45] LABS: ANION GAP 7 mmol/L (7-16); BUN 22 mg/dL (7-18); CALCIUM 7.8 mg/dL (8.5-10.1); CHLORIDE 105 mmol/L (98-107); CO2 27 mmol/L (21-32); CREATININE 0.9 mg/dL (0.6-1.3); GLUCOSE 218 mg/dL (70-99); SODIUM 139 mmol/L (136-145)
[2016-12-27 07:50] LABS: POTASSIUM 4.9 mmol/L (3.5-5.1)
[2016-12-27 09:45] LABS: URINE BILIRUBIN NEGATIVE (Negative); URINE BLOOD NEGATIVE (Negative); URINE COLOR YELLOW; URINE GLUCOSE-RANDOM* TRACE (Negative); URINE KETONES NEGATIVE (Negative); URINE NITRITE NEGATIVE (Negative); URINE PROTEIN (DIPSTICK) NEGATIVE (Negative); URINE SPECIFIC GRAVITY 1.015 (1.003-1.035); URINE UROBILINOGEN 0.2 E.U./dl (0.2-1.0)
[2016-12-29] MEDS ORDERED: XOPENEX 0.63 MG/3 M1 INH (17:00)
[2016-12-29] MEDS ORDERED: GLUCOSE4 GM PO (17:00)
[2016-12-29] MEDS ORDERED: MAGNESIUM400 MG PO ×2 (17:00)
[2016-12-29] MEDS ORDERED: FLOMAX0.4 MG PO (17:00)
[2016-12-29] MEDS ORDERED: DEXTROSE 5025 GM/SYR IV PUSH (17:00)
[2016-12-29] MEDS ORDERED: MUCINEX TA600 MG/TA1 PO (17:00)
[2016-12-29] MEDS ORDERED: IPRATROPIU0.2 MG/1 M INH (17:00)
[2016-12-29] MEDS ORDERED: PACERONE 200 M200 M1 PO (17:00)
[2016-12-29] MEDS ORDERED: CARDIZEM CD240 MG PO (17:00)
[2016-12-29] MEDS ORDERED: CLEOCIN HCL150 MG PO (17:00)
[2016-12-29] MEDS ORDERED: HUMALOG100 UNIT/1 SUBQ (17:00)
[2016-12-29] MEDS ORDERED: GLUTOSE GEL 1515 G1 PO (17:00)
[2016-12-29] MEDS ORDERED: SEROQUEL XR 30300 M1 PO (17:00)
[2016-12-29] MEDS ORDERED: DEPAKOTE ER500 MG PO (17:00)
[2016-12-29] MEDS ORDERED: ENOXAPARIN60 MG/0.1 SUBQ (17:00)
[2016-12-29] MEDS ORDERED: PREDNISONE 10 M10 M1 PO (17:00)
[2016-12-29] MEDS ORDERED: NYAMYC15 GM TOP (17:00)
[2016-12-29] MEDS ORDERED: ACIDOPHILUS1 EAC4 PO (17:00)
[2016-12-29] MEDS ORDERED: PAIN & FEVER325 MG PO (17:00)
== END 2016-12-29 18:48 | DRG 871 ==
LOC: ER 13:11 → 2N 16:24 → EROBS 16:24 → 2N 20:00 → ICU 12-23 17:59 → 2N 12-24 11:27
PROVIDERS: Emergency Medicine; Internal Medicine; Internal Medicine Pulmonary Disease
PROC: 05HB33Z Insertion of Infusion Device into Right Basilic Vein, Percutaneous Approach (ICD-10-PCS; principal; 2016-12-23)
PROC: 0BB88ZX Excision of Left Upper Lobe Bronchus, Via Natural or Artificial Opening Endoscopic, Diagnostic (ICD-10-PCS; 2016-12-23)
DX: A41.9 Sepsis, unspecified organism (principal); J18.8 Other pneumonia, unspecified organism; G92 Toxic encephalopathy; J85.1 Abscess of lung with pneumonia; E43 Unspecified severe protein-calorie malnutrition; J96.01 Acute respiratory failure with hypoxia; N39.0 Urinary tract infection, site not specified; J44.0 Chronic obstructive pulmonary disease with (acute) lower respiratory infection; F20.0 Paranoid schizophrenia; J44.1 Chronic obstructive pulmonary disease with (acute) exacerbation; J98.4 Other disorders of lung; J45.909 Unspecified asthma, uncomplicated; E66.9 Obesity, unspecified; H91.90 Unspecified hearing loss, unspecified ear; F03.90 Unspecified dementia, unspecified severity, without behavioral disturbance, psychotic disturbance, mood disturbance, and anxiety; F32.9 Major depressive disorder, single episode, unspecified; I48.0 Paroxysmal atrial fibrillation; D63.8 Anemia in other chronic diseases classified elsewhere; N18.9 Chronic kidney disease, unspecified; G25.81 Restless legs syndrome; M19.90 Unspecified osteoarthritis, unspecified site; I12.9 Hypertensive chronic kidney disease with stage 1 through stage 4 chronic kidney disease, or unspecified chronic kidney disease; E11.22 Type 2 diabetes mellitus with diabetic chronic kidney disease; F41.9 Anxiety disorder, unspecified; D50.9 Iron deficiency anemia, unspecified; K31.819 Angiodysplasia of stomach and duodenum without bleeding; R33.9 Retention of urine, unspecified; E87.6 Hypokalemia; E11.65 Type 2 diabetes mellitus with hyperglycemia; T38.0X5A Adverse effect of glucocorticoids and synthetic analogues, initial encounter; Z68.28 Body mass index [BMI] 28.0-28.9, adult; Z79.4 Long term (current) use of insulin; Z79.899 Other long term (current) drug therapy; Z86.73 Personal history of transient ischemic attack (TIA), and cerebral infarction without residual deficits; Y92.89 Other specified places as the place of occurrence of the external cause; Z88.0 Allergy status to penicillin; Z88.1 Allergy status to other antibiotic agents; Z88.8 Allergy status to other drugs, medicaments and biological substances
CPT/HCPCS: 10078; 10081; 27000

== ENCOUNTER 2016-12-29 15:51 | Inpatient (IN) | payer OTHER ==
[~2016-12-29] VITALS: Ht 162.6 cm; Wt 71.9 kg
--- NOTE | ~2016-12-29 | D ---
[facility] [address] [place] [address] DISCHARGE SUMMARY Name: LAWSON BRASWELL Room #: 512-P ADM IN M.R.#: [id number] Admission: 12/29/16 Attend Phys: Darrell Beltran MD Discharge: Date of : 30 Report #: [id number] THIS REPORT FOR: //name// CC: Darrell PELAEZ unknown DATE OF SERVICE: 01/07/2017 ADDENDUM The patient did miss some therapy on 01/05/2017 in the afternoon secondary to refusal. By: [id number] Darrell Beltran MD /nt
--- NOTE | ~2016-12-29 | H ---
[facility] [place] [address] HISTORY AND PHYSICAL Name: LAWSON BRASWELL Room #: 512-P ADM IN M.R.#: [id number] Admission: 12/29/16 Attend Phys: Darrell Beltran MD Discharge: Date of : 30 Report #: [id number] THIS REPORT FOR: //name// CC: Darrell Beltran [facility] unknown HISTORY OF PRESENT ILLNESS: The patient is an 86-year-old white female who was admitted with mental status changes. She was diagnosed with a cavitary extensive pneumonia, noted to have acute hypoxic respiratory failure, exacerbation of COPD. She has also been diagnosed with a toxic encephalopathy. She does have premorbid relatively mild paranoid schizophrenia, but has been functional. Psychiatry is assisting. She has pulmonary medicine involved as well as infectious disease. She is improving as far as her respiratory failure, but is still quite weak and debilitated. Overall cognitive she appears to be doing better and is more participatory in her therapies. We are seeing her in rehabilitation medicine consultation. PAST MEDICAL HISTORY: Well delineated in Dr. Harding's history and physical. 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 Her schizophrenia has been controlled with valproic acid and Seroquel at bedtime. Her valproate level was noted to be affected by her antibiotics during this acute hospitalization and that is being adjusted as discussed with Dr. Harding. MEDICATIONS: Please see the full medication listing. SOCIAL HISTORY: Again, well delineated, is a complex home setting where she has been essentially living with another family for many years. Again, please see Dr. Harding's detailed note, which will not be reiterated here. The house does have 3 steps in. The patient did utilize a walker premorbidly. REVIEW OF SYSTEMS: She is very hard of hearing. She uses a clipboard. She is able to read and respond. She does hear voices, but they have been noted to be relatively benign. Did not offer any current complaints of chest pain, shortness of breath or abdominal discomfort. PHYSICAL EXAMINATION: GENERAL: She is a pleasant 86-year-old white female, in no obvious distress. VITAL SIGNS: Last recorded temperature 97.4, pulse 74, respirations 24, blood pressure 125/71. NEUROLOGIC: Alert. Nasal prong O2 is in place. Facies are symmetric. She is cooperative and will follow basic 1 step commands. There is a delay to her responses. EXTREMITIES: She has functional range of motion of the upper extremities, [place] [address] HISTORY AND PHYSICAL Name: LAWSON BRASWELL Room #: 512-P [facility] IN .R.#: [id number] Admission: 12/29/16 Attend Phys: Darrell Beltran MD Discharge: Date of : 30 Report #: [id number] strength is a grade 3+ to 4-/5. Lower extremities, functional range of motion with strength a grade 3+ to 4-/5. She is min assist, which has improved to get into the chair, supine to sit is mod assist. She does have some dysphagia/swallowing difficulties, but does allowed to soft thin diet needs to double swallow. ASSESSMENT: An 86-year-old white female with the following problem list: 1. Toxic encephalopathy. 2. Medical complexity with generalized debilitation. 3. Acute hypoxic respiratory failure. 4. Extensive cavitary pneumonia. 5. Exacerbation of chronic obstructive pulmonary disease. 6. Paroxysmal atrial fibrillation. 7. Mild paranoid schizophrenia. 8. History of mild diabetes mellitus type 2. 9. Prior history of intermittent gastrointestinal bleeding/arteriovenous malformation distal jejunum. 10. Chronic kidney disease stage 3. 11. Hard of hearing. 12. Complex social situation. PLAN: The patient is a candidate for an acute in-hospital inpatient rehabilitation stay. From a preadmission screening perspective: 1. Prior level of function is well delineated above. 2. Expected level of improvement would be for the patient to become modified independent with transfers, mobility and ADLs and improvement in cognition and swallowing, so that she can return back to the home setting. We would anticipate length of stay of around 10-14 days pending progress. 3. Evaluation of the patient's risk for clinical complications. She has multiple medical comorbidities as noted above. 4. Condition that caused the need for rehabilitation would be the toxic encephalopathy and the medical complexity with generalized debilitation. 5. Treatments needed would include PT, OT and speech 1 hour per day, each five days a week throughout the duration of the acute inpatient rehabilitation stay. 6. Anticipated discharge destination would be back to the home setting. 7. We would anticipate home healthcare therapies once the patient is ready to return back to the home setting. 8. The patient meets diagnostic criteria for an acute in-hospital inpatient rehabilitation stay. She meets medical necessity criteria. She does have the tolerance for rehab stay and has appropriate discharge goals back to the home setting. <ELECTRONICALLY SIGNED> By: Darrell Beltran MD 12/30/16 1513 [id number] Darrell Beltran MD /nt
--- NOTE | ~2016-12-29 | H ---
[facility] [place] [address] HISTORY AND PHYSICAL Name: LAWSON BRASWELL Room #: 512-P [facility] IN M.R.#: [id number] Admission: 12/29/16 Attend Phys: Darrell Beltran MD Discharge: Date of : 30 Report #: [id number] THIS REPORT FOR: //name// CC: Darrell Beltran [facility] unknown DATE OF SERVICE: 12/29/2016 HISTORY OF PRESENT ILLNESS: This is an 86-year-old white female originally admitted to [facility] with mental status changes. She was diagnosed with an extensive cavitary pneumonia, was noted to have acute hypoxic respiratory failure, exacerbation of chronic obstructive pulmonary disease. She was diagnosed with a toxic encephalopathy. She has premorbid relatively mild paranoid schizophrenia, but has been functional. Psychiatry was closely involved as well as pulmonary medicine and infectious disease. She was noted to have a cognitive decline from her premorbid status as well as being overall weak and debilitated. She has been more participatory in her therapies. It was felt that she was ready for admission for acute in-hospital inpatient rehabilitation. PAST MEDICAL HISTORY: Well delineated in Dr. Harding's prior history and physical. She has a history of asthma, COPD, mild paranoid schizophrenia, paroxysmal atrial fibrillation, mild diabetes mellitus type 2, recurrent GI bleeding and is noted to have an AVM in the distal jejunum. Her schizophrenia has been controlled with valproic acid and Seroquel at bedtime. Her valproic level was noted to be affected by her antibiotics during her acute hospitalization and adjustments were made accordingly. MEDICATIONS: Please see the full medication listing. SOCIAL HISTORY: There is extensive documentation in this regard as per Dr. Harding's prior notes and case management. She has been living with a family for many years. She utilized the front-wheeled walker premorbidly. She is very hard of hearing, but typically utilizes a clipboard for communication. The goal is to return back home with the family that she has been living with. The house does have 3 steps in. REVIEW OF SYSTEMS: She is very hard of hearing and uses the clipboard as noted above. No current complaints of chest pain, shortness of breath or abdominal discomfort. She does have the prior history of mild paranoid schizophrenia. She does continue to hear voices, although per report, they are relatively benign. PHYSICAL EXAMINATION: GENERAL: She is a pleasant 86-year-old white female in no obvious distress. VITAL SIGNS: Last recorded temperature 98, pulse 87, respirations 18 and blood pressure 129/71. [address] [address] HISTORY AND PHYSICAL Name: LAWSON BRASWELL Room #: 512-P [facility] IN [facility].#: [id number] Admission: 12/29/16 Attend Phys: Darrell Beltran MD Discharge: Date of : 30 Report #: [id number] NEUROLOGIC: She is alert. She is pleasant. If I speak loudly to her, she seems to be able to read my lips and to respond appropriate for basic answers. There is some latency to her responses. She tends to need some cues, although it is somewhat difficult with her hearing deficits. She is able to read reasonably well. HEENT: Facies are symmetric. CHEST: Sounded clear, though maybe some diffuse decrease. CARDIOVASCULAR: Regular rate and rhythm. ABDOMEN: Bowel sounds positive, nontender. GENITOURINARY AND RECTAL: Deferred. NEUROLOGIC: Functional range of motion of both upper extremities with strength grade 3+ to 4-/5. Lower extremities functional range of motion with strength grade 3+ to 4-/5. Tone appeared to be intact. She has been needing mod assist to get up into the chair. ASSESSMENT: 1. Toxic encephalopathy. 2. Medical complexity with generalized debilitation. 3. Acute hypoxic respiratory failure. 4. Extensive cavitary pneumonia. 5. Exacerbation of chronic obstructive pulmonary disease. 6. Paroxysmal atrial fibrillation. 7. Mild paranoid schizophrenia. 8. History of mild diabetes mellitus type 2. 9. Prior history of intermittent gastrointestinal bleed, AV information, distal jejunum. 10. Chronic kidney disease stage III. 11. Hard of hearing. 12. Complex social situation. PLAN: The patient is admitted for acute in-hospital inpatient rehabilitation. From a postadmission physician evaluation perspective, there are no relevant changes since the preadmission screening. Please see the above review of prior and current medical and functional conditions and comorbidities. Please see the patient's prior and current functional status. As far as risk of complication, she has multiple medical comorbidities as noted above. Initial plan of care involves the interdisciplinary acute inpatient rehabilitation program with the goal of maximizing the patient's functional independence, so that she can hopefully return back to her prior living situation. Measurable functional goals would be for her to improve as far as her ambulation and mobility at the walker level as well as overall cognition, so that she can achieve a level where she can go back to her home setting. Prognosis is reasonably good. Would anticipate length of stay of at least 10-14 days. Potential barriers would include her multiple medical comorbidities and decreased functional status. The patient meets diagnostic criteria for an acute in-hospital inpatient [facility] [address] [place] [address] HISTORY AND PHYSICAL Name: LAWSON BRASWELL Room #: 512-P ADM IN .[place].#: [id number] Admission: 12/29/16 Attend Phys: Darrell Beltran MD Discharge: Date of : 30 Report #: [id number] rehabilitation stay. She does meet medical necessity criteria and we will need to continue to have pulmonary medicine and psychiatry as well as internal medicine all follow along with her while she is on the acute rehab zuniga. We will have neuropsychology involved as well to help with issues regarding her encephalopathy considering her premorbid psychiatric disease. She does have appropriate tolerance for therapies and has appropriate discharge goals back to the home setting. <ELECTRONICALLY SIGNED> By: Darrell Beltran MD 12/30/16 1513 [id number] Darrell Beltran MD /nt
--- NOTE | ~2016-12-29 | HC ---
[facility] [place] [address] CONSULTATION Name: LAWSON BRASWELL Room #: 512-P [facility] IN M.R.#: [id number] Admission: 12/29/16 Attend Phys: Darrell Beltran MD Discharge: Date of : 30 Report #: [id number] THIS REPORT FOR: //name// CC: Darrell Beltran [facility] unknown DATE OF SERVICE: 12/31/2016 HISTORY OF PRESENT ILLNESS: The patient was seen back earlier. Temp 36.3, pulse 80, respirations 16 and blood pressure 137/70. The patient was having some problems with red-tinged sputum and the Lovenox has been discontinued. She, unfortunately, has also been unable void and was straight catheterized 425 mL. She has been working in therapies with transfers min assist. We are working on gait, but at this point, she has been refusing out-of-bed mobility. We are doing some standing with her at min assist, with static standing fair minus. She does have some complaints of fatigue and dizziness, which were affecting her out-of-bed mobility. In occupational therapy, transfers, bed to chair are mod-to-max assist. She does need mod assist lifting lower extremities into bed. Utilizing pen and paper to help communicate with the patient. In speech therapy, she appears to have severe comprehensive deficits, with [id number] expressive deficits. She is on a mechanical soft, thin liquid diet. Again, we are trying to work on communicating with the patient utilizing the clip board, etc. ASSESSMENT: 1. Toxic encephalopathy. 2. Medical complexity with generalized debilitation. 3. Extensive cavitary pneumonia. 4. Exacerbation of chronic obstructive pulmonary disease. 5. Mild paranoid schizophrenia. 6. Hemoptysis with Lovenox discontinued. 7. Urinary retention, needing to be straight catheterized. 8. Chronic kidney disease stage 3. 9. Hard of hearing. 10. Prior history of intermittent gastrointestinal bleed. 11. Complex social situation. PLAN: The patient is involved in the inpatient rehabilitation program. The overall plan of care is based on the preadmission screen, post-admission physician evaluation and information garnered from therapy assessments. 1. Estimated length of stay is probably at least 10 days to 2 weeks, potentially longer as warranted. 2. Medical prognosis is reasonably good. 3. Anticipated interventions include the interdisciplinary acute inpatient rehabilitation program with PT, OT and speech; rehabilitation nursing assisting regarding medication management; skin care prophylaxis; bowel and bladder issues [address] [address] CONSULTATION Name: MICHAELLELAWSON Room #: 512-P [facility] IN ..#: [id number] Admission: 12/29/16 Attend Phys: Darrell Beltran MD Discharge: Date of : 30 Report #: [id number] and nursing education. Case management is involved as well as the multiple information consultant physicians. 4. Anticipated functional outcomes would be for the patient to hopefully get back to walker level ambulation and improvement in cognition to the point that she can return back to her home setting. Goal is to again work with her so she can become independent for basic ADLs. 5. Discharge destination would be back home with the family that she lives with. 6. Expected therapy by discipline includes PT, OT and speech one hour per day each 5 days a week throughout the duration of the acute inpatient rehabilitation stay. By: [id number] Darrell Beltran MD /nt
--- NOTE | ~2016-12-29 | HC ---
[facility] [place] [address] CONSULTATION Name: LAWSON BRASWELL Room #: 512-P [facility] IN .R.#: [id number] Admission: 12/29/16 Attend Phys: Darrell Beltran MD Discharge: Date of : 30 Report #: [id number] THIS REPORT FOR: //name// CC: Darrell PELAEZ unknown DATE OF SERVICE: 01/01/2017 NEUROBEHAVIORAL STATUS EXAM ATTENDING PHYSICIAN: Darrell Beltran M.D. SURVEYOR OIL WELL DIRECTIONAL: Naga Morillo, PhD CLINICAL PRESENTATION: The patient is an 86-year-old female admitted to [facility] rehabilitation unit for a comprehensive inpatient rehabilitation program to improve functional mobility and activities of daily living and self-care secondary to deficits from toxic encephalopathy. Her assessment on admission includes medical complexity with generalized debility, acute hypoxic respiratory failure, extensive pneumonia, exacerbation of COPD, paroxysmal atrial fibrillation, mild paranoid schizophrenia, mild diabetes mellitus type 2, prior history of intermittent gastrointestinal bleed, chronic kidney disease stage 3, hard of hearing in complex social situation. A complete description of her medical condition and history along with medications can be found in her medical record. Neuropsychological consultation was requested to provide assistance in the assessment of cognitive and emotional status and to provide recommendations and services. Prior to this most recent admission, she reported to have been living with her family for many years. She has no children. The patient does not report having been . 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 TECHNIQUES UTILIZED: Clinical interview, review of medical records, staff consultation and behavioral observation, mini mental status exam 2 standard version. EXAMINATION FINDINGS: The patient was alert and partially cooperative throughout the assessment. Hearing is severely impaired, which interferes with evaluation of verbally mediated functioning. The patient is presenting with moderate to severe impairment in general cognition. She was not oriented to time with a score of 2/5, but was oriented to place score. She was 0/3 for immediate recall of 3 items. Encoding and instructions were written because of severe deficits in hearing. Intrusion areas were noted in immediate recall. The patient was 2 of 2 for naming. She could follow specific oral commands [facility] [address] [place] [address] CONSULTATION Name: LAWSON BRASWELL Ar Room #: 512-P [facility] IN .R.#: [id number] Admission: 12/29/16 Attend Phys: Darrell Beltran MD Discharge: Date of : 30 Report #: [id number] when hearing was adequate and and written commands. She does not report auditory or visual hallucinations at this time. There is no report of paranoid ideation. DIAGNOSTIC IMPRESSION: Major neurocognitive disorder (dementia), unspecified, without behavior disorder -- extent to be determined, likely in the moderate to severe range). Schizophrenia, paranoid by history. RECOMMENDATIONS: The patient will require 24-hour care. She will need assistance with medical, financial and nutritional management. She will require written directions and structure to maintain safety both with nutrition and medication management. Her insight and judgment into her need of environmental support. Family eduation will be necessary to insure adquate safety up return home. Thank you very much for allowing me to provide the consultation on this patient. <ELECTRONICALLY SIGNED> By: Naga Morillo, PhD 01/02/17 1503 1631 1203 Naga Morillo, PhD /nt
--- NOTE | ~2016-12-29 | EKG ---
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 : 1930 Requested By: Sean Harding Order Number: [id number] MD: Anthony Sommer Measurements Intervals [place] Rate: 77 P: 36 [place]: 156 QRS: -20 QRSD: 93 T: 34 QT: 420 QTc: 476 Interpretive Statements Sinus rhythm Poor R-wave progression Compared to ECG 12/28/2016 10:06:30 No significant change was found Electronically Signed On 12-31-2016 9:11:29 ENVIRONMENTAL DESIGNER by Anthony Sommer [email or web address] <ELECTRONICALLY SIGNED> By: Anthony Sommer MD, [facility] 12/31/16910 1627 26 Anthony Sommer MD, [facility] /EPI
[2016-12-29] MEDS ORDERED: GLUCOSE4 GM PO (17:00)
[2016-12-29] MEDS ORDERED: HUMALOG100 UNIT/1 SUBQ (17:00)
[2016-12-29] MEDS ORDERED: PREDNISONE 10 M10 M1 PO (17:00)
[2016-12-29] MEDS ORDERED: FLOMAX0.4 MG PO (17:00)
[2016-12-29] MEDS ORDERED: MUCINEX TA600 MG/TA1 PO (17:00)
[2016-12-29] MEDS ORDERED: XOPENEX 0.63 MG/3 M1 INH (17:00)
[2016-12-29] MEDS ORDERED: ENOXAPARIN60 MG/0.1 SUBQ (17:00)
[2016-12-29] MEDS ORDERED: ACIDOPHILUS1 EAC4 PO (17:00)
[2016-12-29] MEDS ORDERED: DEXTROSE 5025 GM/SYR IV PUSH (17:00)
[2016-12-29] MEDS ORDERED: SEROQUEL XR 30300 M1 PO (17:00)
[2016-12-29] MEDS ORDERED: NYAMYC15 GM TOP (17:00)
[2016-12-29] MEDS ORDERED: MAGNESIUM400 MG PO ×2 (17:00)
[2016-12-29] MEDS ORDERED: PACERONE 200 M200 M1 PO (17:00)
[2016-12-29] MEDS ORDERED: CLEOCIN HCL150 MG PO (17:00)
[2016-12-29] MEDS ORDERED: CARDIZEM CD240 MG PO (17:00)
[2016-12-29] MEDS ORDERED: PAIN & FEVER325 MG PO (17:00)
[2016-12-29] MEDS ORDERED: DEPAKOTE ER500 MG PO (17:00)
[2016-12-29] MEDS ORDERED: IPRATROPIU0.2 MG/1 M INH (17:00)
[2016-12-29] MEDS ORDERED: GLUTOSE GEL 1515 G1 PO (17:00)
[2016-12-30 06:33] LABS: HEMATOCRIT 30.4 % (37.0-47.0); HEMOGLOBIN 9.6 gm/dL (12.0-15.0); MCH 27.4 pg (26.0-34.0); MCHC 31.7 g/dL (28.0-37.0); MCV 86.4 fL (80.0-100.0); RBC 3.52 mil/uL (4.20-5.00); RDW 19.7 % (10.5-14.5); WBC 18.6 thou/uL (4.0-11.0)
[2016-12-30 06:44] LABS: CALCIUM 7.9 mg/dL (8.5-10.1); POTASSIUM 4.7 mmol/L (3.5-5.1)
[2016-12-31 07:24] LABS: HEMATOCRIT 28.5 % (37.0-47.0); HEMOGLOBIN 9.2 gm/dL (12.0-15.0); MCH 27.7 pg (26.0-34.0)
[2016-12-31 07:26] LABS: MCHC 32.2 g/dL (28.0-37.0); MCV 85.8 fL (80.0-100.0); RBC 3.32 mil/uL (4.20-5.00); RDW 19.9 % (10.5-14.5); WBC 16.5 thou/uL (4.0-11.0)
[2016-12-31 09:23] LABS: CALCIUM 7.9 mg/dL (8.5-10.1); POTASSIUM 5.3 mmol/L (3.5-5.1)
[2016-12-31 10:05] LABS: APTT 30.8 Seconds (24.5-32.8); INR 1.1; PROTIME 11.3 Seconds (9.3-11.4)
[2017-01-06 05:44] LABS: ABSOLUTE NEUTROPHILS 6.6 thou/uL (1.4-8.2); BASOPHILS 0.4 % (0.0-2.0); EOSINOPHILS 1.1 % (0.0-3.0); HEMATOCRIT 25.6 % (37.0-47.0); HEMOGLOBIN 8.4 gm/dL (12.0-15.0); LYMPHOCYTES 20.8 % (24.0-44.0); MCH 28.6 pg (26.0-34.0); MCV 86.6 fL (80.0-100.0); MONOCYTES 10.2 % (1.0-8.0); PLATELET COUNT 217 thou/uL (150-400); POLYS 67.5 % (36.0-66.0); RBC 2.95 mil/uL (4.20-5.00); WBC 9.8 thou/uL (4.0-11.0)
[2017-01-06 05:45] LABS: MANUAL DIFF NO
[2017-01-06 06:02] LABS: CALCIUM 8.2 mg/dL (8.5-10.1); CREATININE 1.2 mg/dL (0.6-1.3); POTASSIUM 4.3 mmol/L (3.5-5.1); TOTAL BILIRUBIN 0.2 mg/dL (<0.1-1.0)
[2017-01-07] MEDS ORDERED: ACETAMINOPHEN325 M1 PO (15:12)
[2017-01-07] MEDS ORDERED: COLACE 100 MG100 MG PO (15:12)
[2017-01-07] MEDS ORDERED: RAPAFLO4 MG PO (15:12)
[2017-01-07] MEDS ORDERED: DEPAKOTE125 MG PO (15:19)
[2017-01-07] MEDS ORDERED: CLEOCIN HCL150 MG PO (15:19)
[2017-01-07] MEDS ORDERED: QUETIAPINE FUM300 MG PO (15:19)
[2017-01-07] MEDS ORDERED: PACERONE 200 M200 M1 PO (15:23)
== END 2017-01-07 16:41 | disposition home health service (06) | DRG 91 ==
PROVIDERS: Internal Medicine; Internal Medicine Pulmonary Disease; Physical Medicine & Rehabilitation
DX: G92 Toxic encephalopathy (principal); J18.9 Pneumonia, unspecified organism; J96.01 Acute respiratory failure with hypoxia; E43 Unspecified severe protein-calorie malnutrition; J44.1 Chronic obstructive pulmonary disease with (acute) exacerbation; F20.0 Paranoid schizophrenia; J44.0 Chronic obstructive pulmonary disease with (acute) lower respiratory infection; R04.2 Hemoptysis; R53.81 Other malaise; N18.3 Chronic kidney disease, stage 3 (moderate); H91.90 Unspecified hearing loss, unspecified ear; F01.50 Vascular dementia, unspecified severity, without behavioral disturbance, psychotic disturbance, mood disturbance, and anxiety; J45.909 Unspecified asthma, uncomplicated; I48.0 Paroxysmal atrial fibrillation; E11.22 Type 2 diabetes mellitus with diabetic chronic kidney disease; T38.0X5A Adverse effect of glucocorticoids and synthetic analogues, initial encounter; E11.65 Type 2 diabetes mellitus with hyperglycemia; H91.10 Presbycusis, unspecified ear; R41.0 Disorientation, unspecified; I95.9 Hypotension, unspecified; D64.9 Anemia, unspecified; R13.10 Dysphagia, unspecified; R33.9 Retention of urine, unspecified; F03.90 Unspecified dementia, unspecified severity, without behavioral disturbance, psychotic disturbance, mood disturbance, and anxiety; Z68.27 Body mass index [BMI] 27.0-27.9, adult; Z90.49 Acquired absence of other specified parts of digestive tract; Z88.0 Allergy status to penicillin; Z88.1 Allergy status to other antibiotic agents; Y92.89 Other specified places as the place of occurrence of the external cause; Z88.8 Allergy status to other drugs, medicaments and biological substances
CPT/HCPCS: 10112

== ENCOUNTER 2017-01-27 16:54 | Inpatient (IN) | payer OTHER ==
[~2017-01-27] VITALS: Ht 162.6 cm; Wt 64.4 kg
--- NOTE | ~2017-01-27 | EKG ---
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
--- NOTE | ~2017-01-27 | EKG ---
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 : 1930 Requested By: Kelly Gibbs Order Number: [id number] MD: Anthony Sommer Measurements Intervals [place] Rate: 71 P: 16 DE: 175 QRS: -27 QRSD: 90 T: 30 QT: 409 QTc: 445 Interpretive Statements Sinus rhythm Inferior infarct, old Compared to ECG 12/30/2016 16:27:45 no significant change was found Electronically Signed On 01-28-2017 9:34:21 CDT by Anthony Sommer [email or web address] <ELECTRONICALLY SIGNED> By: Anthony Sommer MD, [facility] 01/28/17 0934 11 11 Anthony Sommer MD, [facility] /EPI
--- NOTE | ~2017-01-27 | H ---
[facility] [address] [address] HISTORY AND PHYSICAL Name: LAWSON BRASWELL Room #: 419-P ADM IN M.R.#: [id number] Admission: 01/27/17 Attend Phys: Sean Harding MD Discharge: Date of : 30 Report #: [id number] THIS REPORT FOR: //name// CC: Sean Harding DATE OF SERVICE: 01/27/2017 CHIEF COMPLAINT: Yelling and concerned about high blood pressure and heart medications. HISTORY OF PRESENT ILLNESS: I was called by Isra Paredes this afternoon reporting that the patient was yelling at him that he had hidden the TV remote, hidden her checkbook and had taken her medications. He reported that she was angry and yelling and that he had not done these things. He found that TV remote for her, he said he found her checkbook for her and said that she had misplaced her medicines that he did not know where they were. The home health nurse was present during this event. With this information, we asked that Mr. Paredes see that the patient and was brought to the hospital emergency room. The patient was brought to the hospital by Xuan Paredes who is the patient's power of banking attorney and has had significant memory problems that have apparently been untreated for the last several years. I asked Mrs. Paredes when had the home health nurse been there last and she said the last week. She said that they brought the patient to the hospital because the patient wanted to come to the hospital, but basically the patient did not have any acute serious medical problems. The patient herself said that she was not feeling well. The home health nurse had been to the home and measured her blood pressure and it was high. She said she was missing some heart and blood pressure medicine and it made her quite concerned. She also reported not having urinated in a day and half. She had a tight cough during the interview but denied having a cough. On exam, the patient had white diffuse expiratory wheezing along with the cough. Her oropharynx was well hydrated. Heart tones were normal and the rhythm was regular. The abdomen was soft and nontender. There was no significant pedal edema. She was unable to provide a urine specimen, so a straight catheterization returned 300 mL of retained urine. Admission was indicated for evaluation of her yelling and accusing her household members taking things of hers together with her known diagnosis of paranoid schizophrenia, evaluation of her social situation by her home health nursing staff, treatment of urine retention (she said she had not been to see the urologist since discharge) and treatment of her exacerbation of her COPD. [place] [id number] HISTORY AND PHYSICAL Name: LAWSON BRASWELL Room #: 419-P [facility] IN ..#: [id number] Admission: 01/27/17 Attend Phys: Sean Harding MD Discharge: Date of : 30 Report #: [id number] The household has school-aged children living at a separate apartment on the first floor that have been sick recently and the family reported that she herself had a cold for a week. She was recently hospitalized on 12/21/2016. After being sick at home for 10 days, not taking her medicines or eating or drinking before one of the family members insisted on calling the ambulance and was found to have a cavitary pneumonia. She was transferred to the rehabilitation floor a week later and finally discharged from the rehabilitation floor on 01/07/2017. She was to have followed up with me a week later, with the urologist to evaluate new found urinary retention, infectious disease doctor, credit and collections analyst and the stone derrickman and rigger. It is unclear if any of these followup visits were made; she did not see me in my office. PAST MEDICAL HISTORY: Past history of an iron-deficiency anemia, sometimes quite severe, gastric ulcer was found in the past, but a more recent EGD in the records was unremarkable. She experienced toxic encephalopathy on her last hospital stay. She has duodenal and jejunal arterial malformations as the sources of her GI bleeding in the past. Grade C erosive esophagitis in November 2015 without bleeding sites and a colonoscopy was negative. Distant history of paroxysmal atrial fibrillation as well as a more recent one. Mild COPD and asthma caused her anemia on several occasions. She has mild chronic schizophrenia and she is actually highly functional. 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 She has had psychiatric hospitalizations in the past and Seroquel has been quite helpful for her ever since it became available and before then she did well with Mellaril. She has a large hiatal hernia that is unchanged; history of type 2 diabetes with excellent control without a particular dietary and medical regimen. There is a history of B12 deficiency in the past and reliably treated on IM B12 injections on a monthly basis from her chief caregiver, Xuan Paredes. 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 She is cognitively intact, although her being deaf makes it more difficult communication with her. She is able to read well and it is recommended that all communications with her be written. There is a distant history of a small stroke, distant history of ischemic colitis, stable chronic kidney disease stage 3 and chronic daily multifactorial headaches. She reports having a delirious episode from moxifloxacin, Advair caused [facility] [address] [place] [address] HISTORY AND PHYSICAL Name: LAWSON BRASWELL Room #: 419-P [facility] IN ..#: [id number] Admission: 01/27/17 Attend Phys: Sean Harding MD Discharge: Date of : 30 Report #: [id number] shakiness and she has a history of reactions to cephalexin, penicillins, cephalosporins and zolpidem. Note is made that she requests zolpidem to sleep. CURRENT MEDICATIONS: Taken from the discharge medication list and the accuracy cannot be verified. Amiodarone 200 mg 1 daily, 81 mg aspirin daily, clindamycin 150 mg 3 times daily for the pneumonia, vitamin B12 1000 mcg injection once monthly, divalproex sodium 125 mg tablets 2 tablets twice daily and note is made that she has low divalproex acid levels, Colace twice daily, pantoprazole twice daily, MiraLax as needed, quetiapine immediate release 300 mg at bedtime, ropinirole 1 mg at bedtime for restless legs, Rapaflo 8 mg once daily and iron 65 mg daily. OBJECTIVE: GENERAL: Exam shows an 86-year-old woman in the emergency room bed. She is awake and alert and oriented and cognitively intact. HEENT: Her oropharynx is recently well moist. LUNGS: Distant. There are diffuse light expiratory wheezes throughout all lung knight. S1 and S2 are normal and the rhythm is regular. ABDOMEN: Soft and nontender. EXTREMITIES: There is no pedal edema present. NEUROLOGICAL: Screening neurological examination is grossly normal. RADIOLOGICAL DATA: The patient was straight catheterization since she was unable to urinate and 300 mL of urine returned. Despite her listed medication, should be relatively adequate, her Depakote level at that time, she was seen in the emergency room was low at 4. ASSESSMENT: 1. Acute and chronic urinary retention with minimal symptoms. 2. Mild chronic paranoid schizophrenia, with what may have been an outburst when the home health nurse was present earlier today. 3. Acute toxic encephalopathy from what may be missing her medication. 4. Paroxysmal atrial fibrillation with rapid ventricular response - currently, she is in sinus rhythm. 5. Severe malnutrition with admitting albumin is 2.7, but this is much better and an albumin of 1.4 she had at the time of discharge. 6. Acute viral illness or "cold." 7. Exacerbation of her baseline chronic obstructive pulmonary disease. 8. Acute renal failure with a creatinine of 1.3, at least 0.3 points higher than her more recent creatinine numbers. 9. Her chronic anemia is relatively well compensated with an admitting hemoglobin of 11.2. 10. History of B12 deficiency. PLAN: Admission is indicated to further evaluate and treat the interaction of [address] [address] HISTORY AND PHYSICAL Name: LAWSON BRASWELL Room #: 419-P ADM IN M.R.#: [id number] Admission: 01/27/17 Attend Phys: Sean Harding MD Discharge: Date of : 30 Report #: [id number] these multiple problems. On her last hospital stay, her quetiapine dose was reduced from 600 to 300 mg at bedtime and control her hallucinations with a smallest contribution possible towards the urine retention. Similarly her divalproex sodium medications were kept at a low level of 250 mg twice a day. She will be taught to self-catheterize at this time in the hospital to have this available as a tool to keep her bladder emptied. She will be given aerosolized bronchodilators avoiding Beta agonists to help with her exacerbation of her chronic obstructive pulmonary disease. Her valproic acid level being increased to help with paranoid schizophrenia symptoms. Outside social work job titles will be contacted to determine the fitness of her current and longstanding home. By: [id number] Sean Harding MD /nt
[2017-01-27 16:54] VITALS: BP 155/93
[~2017-01-27 16:54] MED LIST changes: +ACETAMINOPHEN325 M1 PO; +ACIDOPHILUS1 EAC4 PO; +CARDIZEM CD240 MG PO; +CLEOCIN HCL150 MG PO; +COLACE 100 MG100 MG PO; +DEPAKOTE ER500 MG PO; +DEXTROSE 5025 GM/SYR IV PUSH; +ENOXAPARIN60 MG/0.1 SUBQ; +FLOMAX0.4 MG PO; +GLUCOSE4 GM PO; +GLUTOSE GEL 1515 G1 PO; +HUMALOG100 UNIT/1 SUBQ; +IPRATROPIU0.2 MG/1 M INH; +MAGNESIUM400 MG PO; +MUCINEX TA600 MG/TA1 PO; +NYAMYC15 GM TOP; +PACERONE 200 M200 M1 PO; +PAIN & FEVER325 MG PO; +PREDNISONE 10 M10 M1 PO; +RAPAFLO4 MG PO; +XOPENEX 0.63 MG/3 M1 INH
[2017-01-27 17:15] LABS: BASOPHILS 1.2 % (0.0-2.0); EOSINOPHILS 2.4 % (0.0-3.0); HEMATOCRIT 35.3 % (37.0-47.0); HEMOGLOBIN 11.2 gm/dL (12.0-15.0); LYMPHOCYTES 29.4 % (24.0-44.0); MANUAL DIFF NO; MCH 28.2 pg (26.0-34.0); MCHC 31.8 g/dL (28.0-37.0); MCV 88.9 fL (80.0-100.0); MONOCYTES 11.2 % (1.0-8.0); PLATELET COUNT 216 thou/uL (150-400); POLYS 55.8 % (36.0-66.0); RBC 3.97 mil/uL (4.20-5.00); RDW 19.3 % (10.5-14.5); WBC 7.1 thou/uL (4.0-11.0)
[2017-01-27 17:24] LABS: ANION GAP 7 mmol/L (7-16); BUN 13 mg/dL (7-18); CHLORIDE 106 mmol/L (98-107); CO2 28 mmol/L (21-32); CREATININE 1.3 mg/dL (0.6-1.0); GLUCOSE 118 mg/dL (74-106); POTASSIUM 3.5 mmol/L (3.5-5.1); SODIUM 141 mmol/L (136-145)
[2017-01-27 17:29] LABS: APTT 24.9 Seconds (24.5-32.8); PROTIME 10.7 Seconds (9.3-11.4)
[2017-01-27 17:34] LABS: ALBUMIN 2.7 g/dL (3.4-5.0); ALKALINE PHOSPHATASE 79 U/L (46-116); NT-PRO BRAIN NAT PEPTIDE 339 pg/mL (<300); SGOT 16 U/L (15-37); SGPT 15 U/L (30-65); TOTAL BILIRUBIN 0.3 mg/dL (<0.1-1.0); TOTAL PROTEIN 7.3 g/dL (6.4-8.2); TROPONIN-I < 0.04 ng/mL (<0.04-0.07)
[2017-01-27 19:31] LABS: URINE BILIRUBIN NEGATIVE (Negative); URINE BLOOD NEGATIVE (Negative); URINE COLOR YELLOW; URINE GLUCOSE-RANDOM* NEGATIVE (Negative); URINE KETONES NEGATIVE (Negative); URINE LEUKOCYTES-REFLEX TRACE (Negative); URINE PROTEIN (DIPSTICK) NEGATIVE (Negative); URINE SPECIFIC GRAVITY 1.025 (1.003-1.035); URINE UROBILINOGEN 0.2 E.U./dl (0.2-1.0)
[2017-01-27 20:52] VITALS: BP 144/84
[2017-01-27 21:43] VITALS: BP 176/92
[2017-01-27 23:10] VITALS: BP 128/69
[2017-01-28 04:00] VITALS: BP 151/71
[2017-01-28 07:53] VITALS: BP 119/80
[2017-01-28 12:23] VITALS: BP 135/87
[2017-01-28 15:40] VITALS: BP 130/71
[2017-01-28 20:19] VITALS: BP 137/70
[2017-01-29 04:11] VITALS: BP 150/66
[2017-01-29 05:16] LABS: HEMATOCRIT 29.8 % (37.0-47.0); HEMOGLOBIN 9.6 gm/dL (12.0-15.0); MCH 28.5 pg (26.0-34.0); MCHC 32.2 g/dL (28.0-37.0); MCV 88.7 fL (80.0-100.0); RBC 3.35 mil/uL (4.20-5.00); RDW 19.1 % (10.5-14.5); WBC 8.4 thou/uL (4.0-11.0)
[2017-01-29 05:30] LABS: CREATININE 1.2 mg/dL (0.6-1.0); POTASSIUM 4.3 mmol/L (3.5-5.1); TOTAL BILIRUBIN 0.3 mg/dL (<0.1-1.0); TOTAL PROTEIN 6.1 g/dL (6.4-8.2)
[2017-01-29 07:45] VITALS: BP 142/74
[2017-01-29 16:12] VITALS: BP 150/91
[2017-01-29 20:30] VITALS: BP 156/93
[2017-01-30 07:25] VITALS: BP 151/86
[2017-01-30 11:19] LABS: HEMATOCRIT 30.9 % (37.0-47.0); HEMOGLOBIN 9.9 gm/dL (12.0-15.0); MCH 28.1 pg (26.0-34.0); MCHC 31.9 g/dL (28.0-37.0); MCV 88.1 fL (80.0-100.0); RBC 3.51 mil/uL (4.20-5.00); RDW 19.3 % (10.5-14.5); WBC 6.9 thou/uL (4.0-11.0)
[2017-01-30 11:31] LABS: CALCIUM 8.6 mg/dL (8.5-10.1); CREATININE 1.2 mg/dL (0.6-1.0); POTASSIUM 3.9 mmol/L (3.5-5.1)
[2017-01-30] MEDS ORDERED: RAPAFLO4 MG PO (13:59)
[2017-01-30] MEDS ORDERED: QUETIAPINE FUM300 MG PO (14:04)
[2017-01-30] MEDS ORDERED: DEPAKOTE500 MG PO (14:04)
[2017-01-30 14:31] VITALS: BP 151/86
== END 2017-01-30 15:28 | disposition home health service (06) | DRG 695 ==
LOC: ER 16:54 → EROBS 19:40 → 4E 19:40
PROVIDERS: Emergency Medicine; Internal Medicine
DX: R33.9 Retention of urine, unspecified (principal); G92 Toxic encephalopathy; E43 Unspecified severe protein-calorie malnutrition; J18.9 Pneumonia, unspecified organism; J44.1 Chronic obstructive pulmonary disease with (acute) exacerbation; F20.0 Paranoid schizophrenia; J45.909 Unspecified asthma, uncomplicated; N18.3 Chronic kidney disease, stage 3 (moderate); E11.22 Type 2 diabetes mellitus with diabetic chronic kidney disease; I48.0 Paroxysmal atrial fibrillation; B34.9 Viral infection, unspecified; D63.8 Anemia in other chronic diseases classified elsewhere; K59.00 Constipation, unspecified; I12.9 Hypertensive chronic kidney disease with stage 1 through stage 4 chronic kidney disease, or unspecified chronic kidney disease; Z87.81 Personal history of (healed) traumatic fracture; Z90.49 Acquired absence of other specified parts of digestive tract; Z79.899 Other long term (current) drug therapy; Z88.8 Allergy status to other drugs, medicaments and biological substances; Z88.0 Allergy status to penicillin; Z68.24 Body mass index [BMI] 24.0-24.9, adult
CPT/HCPCS: 10183

== ENCOUNTER 2017-02-07 15:33 | Inpatient (IN) | payer OTHER ==
[~2017-02-07] VITALS: Ht 172.7 cm; Wt 66.2 kg
--- NOTE | ~2017-02-07 | H ---
[facility] [place] [address] HISTORY AND PHYSICAL Name: LAWSON BRASWELL Room #: 428-P [facility] IN M.R.#: [id number] Admission: 02/07/17 Attend Phys: Sean Harding MD Discharge: 02/17/17 Date of : 30 Report #: [id number] THIS REPORT FOR: //name// CC: Sean Harding CHIEF COMPLAINT: Confusion, "I am a mess." HISTORY OF PRESENT ILLNESS: Information is taken from a family telephone call to the office, the emergency room record, and the patient herself. The family called my office saying that the paramedics were taking her to [facility] Emergency Room as she had been unable to aroused for 24 hours. Information in the emergency room was that she had been unable to speak and had been favoring her right side for the previous about 24 hours. The patient herself indicated to me that she was a mess and that she had had difficulties "down there" referring to the perineum, genitourethral and rectal areas. The patient was unable to indicate anything more than she had some difficulty with either urinating or moving her bowels earlier in the day today, and 20 minutes later, she did indicate she had been able to urinate and also moved her bowels earlier in the day. There were no household members available to obtain further information from. Her [place] coma score was 13 in the emergency room at 04:10 earlier this afternoon. The emergency room physician found her to demonstrate some cognitive difficulties with understanding more detailed instructions, but did not notice any focal neurological deficits. She did note the patient being hard of hearing. Her recent past medical history includes an admission 12/21/2016, for cavitary pneumonia. She was treated, spent a short period of time in rehabilitation unit, and returned home, but came back to the emergency room on 01/27/2017, because of some anger behavior outbursts of her schizophrenia and because the home health nurse reported her blood pressure had been elevated at home that day. She was admitted on 01/27/2017 and discharged on 01/30/2017. Her admitting valproic acid levels were low, and her dose was increased. A CT scan of the chest showed that her cavitary infiltrates had improved, but persisted and that she needed to continue her clindamycin oral antibiotic, she also did have variable degree of urine retention in the hospital. She was found to have delayed sensation to bladder fullness, perhaps up to 400-500 mL of bladder volume before she experienced an urge to urinate. She was also found to be constipated, and after MiraLax, she was able to have a bowel movement more easily, and this also corresponded to being better able to empty her bladder too. CURRENT MEDICATIONS: Rapaflo 8 mg 1 daily, quetiapine rapid release 300 mg 1 at bedtime, divalproex sodium [address] twice daily, 81 mg of aspirin, 65 mg orally of iron, vitamin B12 1000 mcg orally daily, ropinirole 0.25 mg 4 tablets at bedtime, pantoprazole 40 mg twice daily, acetaminophen as needed, Colace [address] [address] HISTORY AND PHYSICAL Name: LAWSON BRASWELL Room #: 428-P [facility] IN ..#: [id number] Admission: 02/07/17 Attend Phys: Sean Harding MD Discharge: 02/17/17 Date of : 30 Report #: [id number] twice daily as needed, clindamycin 150 mg 3 times daily, amiodarone 200 mg daily, and MiraLax as needed [id number] laxative. SOCIAL HISTORY: Please see social history section of previous admissions. 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 She does not drink nor smoke although other members in the household do. REVIEW OF SYSTEMS: At the time of my evaluation of the patient in the emergency room, she was sleeping, but easily aroused. It took her a few minutes for the confusion of having been asleep to resolve and for her to awaken fully. She denied any specific pains. She did report being a "mess down here," indicating perineal area. She specifically did say that she was able to both have a bowel movement recently and to be able to urinate on her own today as well. PHYSICAL EXAMINATION: GENERAL: The patient was easily awakened from sleep. She recognized me. Her immediate memory and recall was somewhat foggy as she further awakened. HEENT: Remarkable for mildly dry oropharynx. NECK: Negative. LUNGS: Clear. CARDIOVASCULAR: Heart tones were normal and the rhythm was regular. ABDOMEN: Soft, nontender, without hepatosplenomegaly or masses. She did indicate a very mild tenderness over the lower pelvic area - she complained of this before after having multiple bladder scans for residual urine when in the hospital over the last month, but on exam, there was no true tenderness present. There was no hepatosplenomegaly or masses. EXTREMITIES: There was no clubbing, cyanosis or edema in the extremities. NEUROLOGIC: There were no focal neurological deficits identified, motor strength was symmetrical throughout both the right and the left upper and lower extremities. The muscles of facial expression were normal and symmetrically balanced and the tongue protruded in the midline. LABORATORY DATA: The urinalysis is consistent with infection of cystitis or pyelonephritis with the presence of many bacteria, 15 wbc's, 2+ leukocytes and few squamous epithelial cells, nitrites are positive but trace blood is present as well. White blood cell count is in the normal range at 5600, hemoglobin is 10.7, which is slightly higher than last week and she was discharged. The patient's differential is remarkable only for mild monocytosis. Creatinine is 1.3 and unchanged from last month. The albumin is still low at 2.3. [facility] [address] [place] [address] HISTORY AND PHYSICAL Name: LAWSON BRASWELL Room #: 428-P [facility]#: [id number] Admission: 02/07/17 Attend Phys: Sean Harding MD Discharge: 02/17/17 Date of : 30 Report #: [id number] ASSESSMENT: 1. The patient has confusion and is not able to recall clearly the events of earlier today or yesterday - toxic encephalopathy. 2. Findings consistent with an acute cystitis. 3. Cavitary pneumonia for which she still should be taking clindamycin 150 mg 3 times daily. 4. Atrial fibrillation with rapid ventricular response - remains in normal sinus rhythm on her amiodarone. 5. Paranoid schizophrenia with valproic acid dose increased last week. 6. Intermittent urine retention that has not caused an infection or medical problems in the past. Retention is relatively a new diagnosis. 7. She has complained on incontinency of urine in the past, this may be related to urine retention with overflow incontinence. 8. She is very hard of hearing, but ordinarily can read well and is ordinarily cognitively intact. PLAN: She is admitted at this time with intravenous levofloxacin to treat the presumed urinary tract infection/cystitis. Urine culture is being obtained. Blood for valproic acid levels will be obtained to see if she has been taking her increased dose at home. Physical therapy and occupational therapy evaluations will be obtained. MRI scanning of the brain for the possibility of a new stroke will also be obtained. A formal report will be made to the [facility] Department of Aging for adequacy of her home living situation. She remains at her request a full code blue. <ELECTRONICALLY SIGNED> By: Sean Harding MD 02/17/17 1745 2040 2333 Sean Harding MD /nt
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
--- NOTE | ~2017-02-07 | EKG ---
[place] [address] [facility] [place] [address] ELECTROCARDIOGRAM REPORT Name: LAWSON BRASWELL Room #: 428-P ADM IN M.R.#: [id number] Admission: 02/07/17 Attend Phys: Sean Harding MD Discharge: Date of : 30 Report #: [id number] THIS REPORT FOR: //name// [facility] ED Test Date: 2017-02-07 Test Time: 16:06:13 Pat Name: LAWSON BRASWELL Department: Room: [facility] Gender: F Client Development Manager: MZOOK : 1930 Requested By: Alaina Queen Order Number: [id number] MD: Anthony Sommer Measurements Intervals [place] Rate: 62 P: 18 WV: 171 QRS: -25 QRSD: 91 T: 40 QT: 532 QTc: 541 Interpretive Statements Sinus rhythm Borderline left axis deviation Poor R wave progression Nonspecific T wave abnormality Compared to ECG 01/27/2017 21:13:32 nonspecific change in the T wave abnormality Electronically Signed On 02-08-2017 8:37:15 CDT by Anthony Sommer [email or web address] <ELECTRONICALLY SIGNED> By: Anthony Sommer MD, [facility] 02/08/17 0837 [id number] Anthony Sommer MD, [facility] /EPI
[~2017-02-07 15:33] MED LIST changes: +DEPAKOTE500 MG PO
[2017-02-07 15:34] VITALS: BP 155/85
[2017-02-07 16:02] LABS: HEMATOCRIT 31.8 % (37.0-47.0); HEMOGLOBIN 10.7 gm/dL (12.0-15.0); MCH 29.4 pg (26.0-34.0); MCHC 33.5 g/dL (28.0-37.0); MCV 87.8 fL (80.0-100.0); PLATELET COUNT 211 thou/uL (150-400); RBC 3.62 mil/uL (4.20-5.00); RDW 19.1 % (10.5-14.5); WBC 5.6 thou/uL (4.0-11.0)
[2017-02-07 16:03] LABS: MANUAL DIFF YES
[2017-02-07 16:12] LABS: ANION GAP 8 mmol/L (7-16); BUN 18 mg/dL (7-18); CALCIUM 8.3 mg/dL (8.5-10.1); CHLORIDE 110 mmol/L (98-107); CO2 25 mmol/L (21-32); CREATININE 1.3 mg/dL (0.6-1.0); GLUCOSE 102 mg/dL (74-106); POTASSIUM 3.8 mmol/L (3.5-5.1); SODIUM 143 mmol/L (136-145)
[2017-02-07 16:19] LABS: ALBUMIN 2.3 g/dL (3.4-5.0); ALKALINE PHOSPHATASE 63 U/L (46-116); SGOT 20 U/L (15-37); SGPT 9 U/L (30-65); TOTAL BILIRUBIN 0.2 mg/dL (<0.1-1.0); TOTAL PROTEIN 6.6 g/dL (6.4-8.2); TROPONIN-I < 0.04 ng/mL (<0.04-0.07)
[2017-02-07 16:30] LABS: ABSOLUTE NEUTROPHILS 2.6 thou/uL (1.4-8.2); ANISOCYTOSIS 1+; TOTAL CELL COUNT 100
[2017-02-07 16:47] LABS: URINE BILIRUBIN NEGATIVE (Negative); URINE BLOOD TRACE (Negative); URINE COLOR YELLOW; URINE GLUCOSE-RANDOM* NEGATIVE (Negative); URINE KETONES NEGATIVE (Negative); URINE NITRITE POSITIVE (Negative); URINE PROTEIN (DIPSTICK) NEGATIVE (Negative); URINE UROBILINOGEN 0.2 E.U./dl (0.2-1.0)
[2017-02-07 16:55] LABS: CASTS None Seen /LPF (None Seen); CRYSTALS None Seen /LPF (None Seen); SQUAMOUS 0-3 Few /LPF (0-3)
[2017-02-07 16:56] LABS: BACTERIA >30 Many /HPF (None Seen); URINE RBC 0-2 Rare /HPF (0-2); URINE WBC 6-15 Few /HPF (0-5)
[2017-02-07 20:00] VITALS: BP 165/83
[2017-02-08 04:21] VITALS: BP 147/65
[2017-02-08 05:32] LABS: HEMATOCRIT 31.9 % (37.0-47.0); HEMOGLOBIN 10.4 gm/dL (12.0-15.0); MCH 28.8 pg (26.0-34.0); MCHC 32.7 g/dL (28.0-37.0); MCV 88.2 fL (80.0-100.0); RBC 3.62 mil/uL (4.20-5.00); RDW 19.5 % (10.5-14.5); WBC 7.8 thou/uL (4.0-11.0)
[2017-02-08 05:41] LABS: CALCIUM 8.4 mg/dL (8.5-10.1); CREATININE 1.2 mg/dL (0.6-1.0); POTASSIUM 4.1 mmol/L (3.5-5.1)
[2017-02-08 07:53] VITALS: BP 181/89
[2017-02-08 16:32] VITALS: BP 165/81
[2017-02-08 20:51] VITALS: BP 169/93
[2017-02-09 04:21] VITALS: BP 179/102
[2017-02-09 06:06] VITALS: BP 183/99
[2017-02-09 07:29] VITALS: BP 160/104
[2017-02-09 15:05] VITALS: BP 153/85
[2017-02-09 20:00] VITALS: BP 184/84
[2017-02-10 04:00] VITALS: BP 184/97
[2017-02-10 07:20] VITALS: BP 192/88
[2017-02-10 15:22] VITALS: BP 124/82
[2017-02-10 21:30] VITALS: BP 104/72
[2017-02-11 04:30] VITALS: BP 86/50
[2017-02-11 05:00] LABS: HEMATOCRIT 37.5 % (37.0-47.0); HEMOGLOBIN 12.1 gm/dL (12.0-15.0); MCH 28.5 pg (26.0-34.0); MCHC 32.2 g/dL (28.0-37.0); MCV 88.7 fL (80.0-100.0); RBC 4.23 mil/uL (4.20-5.00); RDW 19.6 % (10.5-14.5); WBC 12.1 thou/uL (4.0-11.0)
[2017-02-11 05:05] LABS: CALCIUM 8.6 mg/dL (8.5-10.1); POTASSIUM 3.6 mmol/L (3.5-5.1)
[2017-02-11 06:27] VITALS: BP 111/71
[2017-02-11 08:14] VITALS: BP 118/72
[2017-02-11 15:00] VITALS: BP 82/52
[2017-02-11 20:00] VITALS: BP 133/68
[2017-02-12 05:34] LABS: HEMATOCRIT 31.3 % (37.0-47.0); HEMOGLOBIN 10.2 gm/dL (12.0-15.0); MCH 28.6 pg (26.0-34.0); MCHC 32.5 g/dL (28.0-37.0); MCV 88.2 fL (80.0-100.0); RBC 3.55 mil/uL (4.20-5.00); RDW 19.4 % (10.5-14.5); WBC 11.2 thou/uL (4.0-11.0)
[2017-02-12 05:42] LABS: CALCIUM 7.6 mg/dL (8.5-10.1); CREATININE 2.6 mg/dL (0.6-1.0); POTASSIUM 4.4 mmol/L (3.5-5.1)
[2017-02-12 15:44] VITALS: BP 155/80
[2017-02-12 21:00] VITALS: BP 118/67
[2017-02-13 05:50] LABS: HEMATOCRIT 33.9 % (37.0-47.0); MCH 28.7 pg (26.0-34.0); MCHC 32.6 g/dL (28.0-37.0); MCV 87.9 fL (80.0-100.0); RBC 3.85 mil/uL (4.20-5.00); RDW 18.9 % (10.5-14.5); WBC 9.8 thou/uL (4.0-11.0)
[2017-02-13 06:06] LABS: CALCIUM 8.6 mg/dL (8.5-10.1); CREATININE 1.8 mg/dL (0.6-1.0); POTASSIUM 4.8 mmol/L (3.5-5.1)
[2017-02-13 08:00] VITALS: BP 171/90
[2017-02-13 16:00] VITALS: BP 166/76
[2017-02-13 20:00] VITALS: BP 122/65
[2017-02-13 23:01] LABS: URINE BILIRUBIN NEGATIVE (Negative); URINE BLOOD TRACE (Negative); URINE COLOR YELLOW; URINE GLUCOSE-RANDOM* NEGATIVE (Negative); URINE KETONES NEGATIVE (Negative); URINE LEUKOCYTES-REFLEX TRACE (Negative); URINE PROTEIN (DIPSTICK) NEGATIVE (Negative); URINE UROBILINOGEN 0.2 E.U./dl (0.2-1.0)
[2017-02-13 23:28] LABS: CRYSTALS None Seen /LPF (None Seen); SQUAMOUS 4-10 Moderate /LPF (0-3); URINE RBC 0-2 Rare /HPF (0-2); URINE WBC-REFLEX 6-15 Few /HPF (0-5)
[2017-02-14 05:44] LABS: HEMATOCRIT 30.3 % (37.0-47.0); MCH 29.3 pg (26.0-34.0); MCHC 33.1 g/dL (28.0-37.0); MCV 88.6 fL (80.0-100.0); RBC 3.42 mil/uL (4.20-5.00); RDW 19.9 % (10.5-14.5); WBC 10.2 thou/uL (4.0-11.0)
[2017-02-14 05:53] LABS: CALCIUM 8.5 mg/dL (8.5-10.1); CREATININE 1.4 mg/dL (0.6-1.0); POTASSIUM 4.5 mmol/L (3.5-5.1)
[2017-02-14 08:02] VITALS: BP 154/80
[2017-02-14 15:28] VITALS: BP 125/67
[2017-02-15 01:00] VITALS: BP 105/80
[2017-02-15 05:39] LABS: HEMATOCRIT 31.9 % (37.0-47.0); HEMOGLOBIN 10.4 gm/dL (12.0-15.0); MCH 28.9 pg (26.0-34.0); MCHC 32.5 g/dL (28.0-37.0); MCV 88.9 fL (80.0-100.0); RBC 3.59 mil/uL (4.20-5.00); RDW 19.1 % (10.5-14.5); WBC 9.2 thou/uL (4.0-11.0)
[2017-02-15 06:06] LABS: CALCIUM 8.3 mg/dL (8.5-10.1); CREATININE 1.4 mg/dL (0.6-1.0); POTASSIUM 4.6 mmol/L (3.5-5.1)
[2017-02-15 08:09] VITALS: BP 138/62
[2017-02-15 15:38] VITALS: BP 144/80
[2017-02-15 20:00] VITALS: BP 155/76
[2017-02-16 07:07] VITALS: BP 163/68
[2017-02-16 15:37] VITALS: BP 173/85
[2017-02-16 20:00] VITALS: BP 110/47
[2017-02-17 04:00] VITALS: BP 188/81
[2017-02-17 12:14] VITALS: BP 188/81
[2017-02-17] MEDS ORDERED: VITAMIN B-12500 MCG PO (15:36)
[2017-02-17] MEDS ORDERED: OLANZAPINE ODT5 MG PO (15:36)
[2017-02-17] MEDS ORDERED: SEROQUEL 100 M100 MG PO (15:36)
[2017-02-17] MEDS ORDERED: OLANZAPINE10 M2 IM (15:36)
[2017-02-17] MEDS ORDERED: REQUIP 0.25 M0.25 MG PO (15:36)
[2017-02-17] MEDS ORDERED: DIVALPROEX SOD125 MG PO (15:36)
[2017-02-17] MEDS ORDERED: CLEOCIN HCL150 MG PO (16:08)
[2017-02-17] MEDS ORDERED: PROBIOTIC1 EAC1 PO (16:23)
== END 2017-02-17 16:51 | DRG 689 ==
LOC: ER 15:33 → 4E 17:27 → EROBS 17:27 → 4E 18:48
PROVIDERS: Internal Medicine; Physician Assistant
DX: N30.00 Acute cystitis without hematuria (principal); G92 Toxic encephalopathy; J18.9 Pneumonia, unspecified organism; E43 Unspecified severe protein-calorie malnutrition; F20.0 Paranoid schizophrenia; N17.9 Acute kidney failure, unspecified; K59.00 Constipation, unspecified; J44.9 Chronic obstructive pulmonary disease, unspecified; R47.1 Dysarthria and anarthria; D50.9 Iron deficiency anemia, unspecified; E53.8 Deficiency of other specified B group vitamins; N18.3 Chronic kidney disease, stage 3 (moderate); I12.9 Hypertensive chronic kidney disease with stage 1 through stage 4 chronic kidney disease, or unspecified chronic kidney disease; K44.9 Diaphragmatic hernia without obstruction or gangrene; F41.9 Anxiety disorder, unspecified; G25.81 Restless legs syndrome; F32.9 Major depressive disorder, single episode, unspecified; E11.22 Type 2 diabetes mellitus with diabetic chronic kidney disease; I48.91 Unspecified atrial fibrillation; H91.90 Unspecified hearing loss, unspecified ear; E86.9 Volume depletion, unspecified; R53.81 Other malaise; E86.0 Dehydration; Z87.81 Personal history of (healed) traumatic fracture; Z88.0 Allergy status to penicillin; Z86.73 Personal history of transient ischemic attack (TIA), and cerebral infarction without residual deficits; Z68.22 Body mass index [BMI] 22.0-22.9, adult; Z88.1 Allergy status to other antibiotic agents; Z90.49 Acquired absence of other specified parts of digestive tract; Z88.8 Allergy status to other drugs, medicaments and biological substances
CPT/HCPCS: 10183

== ENCOUNTER → 2017-03-17 | Outpatient (CLI) | payer OTHER ==
[~2017-03-17] MED LIST changes: +DIVALPROEX SOD125 MG PO; +OLANZAPINE ODT5 MG PO; +OLANZAPINE10 M2 IM; +PROBIOTIC1 EAC1 PO; +SEROQUEL 100 M100 MG PO; +VITAMIN B-12500 MCG PO
== END ==
LOC: CAT 11:01
DX: J18.9 Pneumonia, unspecified organism (principal)

== ENCOUNTER 2017-09-29 17:02 | Inpatient (IN) | payer OTHER ==
[~2017-09-29] VITALS: Ht 162.6 cm; Wt 59.6 kg
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
--- NOTE | ~2017-09-29 | S ---
[facility] [place] [address] SURGICAL PATH RPT PROCEDURE Name: FRANC BRASWELL Room #: 362-P ADM IN M.R.#: [id number] Admission: 09/29/17 Date of : 30 Discharge: Report #: [id number] Path Case #: [id number] PATHOLOGY REPORT COLLECTION DATE: 10/06/2017 RECEIVED DATE: 10/06/2017 SUBMITTING PHYS: Dr. Yajaira Kramer OTHER PHYS: Dr. Sean Harding SPECIMEN(S) RECEIVED: A.Duodenal bulb B.Pylorus C.Antrum D.Cardia and Fundus * * * * * * * * * * * * FINAL DIAGNOSIS: A. Small bowel, duodenal bulb, biopsy: - Mild chronic inflammation. - Normal villous architecture. B. Stomach, pylorus, biopsy: - Chronic superficial gastritis, mild to moderate, with focal acute activity. - No evidence of Helicobacter pylori on immunoperoxidase stain. C. Stomach, antrum, biopsy: - Chronic superficial gastritis, mild to moderate. - No evidence of Helicobacter pylori on immunoperoxidase stain. D. Stomach, "cardia and fundus", biopsy: - Chronic superficial gastritis, mild to moderate. - No evidence of Helicobacter pylori on immunoperoxidase stain. (SKM/db; 10/07/2017) PATHOLOGIST: Deng Dyer M.D. REPORT ELECTRONICALLY SIGNED BY: Deng Dyer M.D. DATE/TIME: 10/07/2017 15:08 * * * * * * * * * * * * GROSS PATHOLOGY: A. Received in formalin labeled "Franc Braswell BX of duodenal bulb," are 2 segments of turner soft tissue measuring 0.7 x 0.2 x 0.3 cm in aggregate dimensions and ranging from 0.3 to 0.4 cm in maximum dimension. The specimen is submitted entirely in cassette A1. B. Received in formalin labeled "Franc Braswell BX of pylorus," is a segment of turner soft tissue measuring 0.4 cm in maximum dimension. The specimen is submitted entirely in cassette B1. C. Received in formalin labeled "Franc Eugenew, BX antrum," are [address] [address] SURGICAL PATH RPT PROCEDURE Name: FRANC BRASWELL Ar Room #: 362-P [facility] [place] [facility].#: [id number] Admission: 09/29/17 Date of : 30 Discharge: Report #: [id number] Path Case #: [id number] segments of turner soft tissue measuring 1.2 x 0.7 x 0.3 cm in aggregate dimensions and ranging from 0.3 to 0.5 cm in maximum dimension. The specimen is submitted entirely in cassette C1. D. Received in formalin labeled "Franc Braswell BX of cardia and fundus," is a segment of turner soft tissue measuring 0.4 cm in maximum dimension. The specimen is submitted entirely in cassette B1. (TSD; 10/06/2017) CLINICAL HISTORY: Pre-OP DX: Weight loss, thickened pylorus on x-ray Post-OP DX: Hiatal hernia INITIAL CPT CODE(S): A; 25971 B; 71921, 63259 C; 44695, 35510 D; 90969, 27225 Professional services performed by [employer] at [facility] [address], [place] [address] Technical services performed by [employer] at [address] [place] [address], [address], [place] [address]. [facility] [address] [place] [address] PHONE: [phone] DIRECTOR: Rocael Barnhart M.D. * * * END OF REPORT * * *
--- NOTE | ~2017-09-29 | P ---
[facility] [place] [address] PROCEDURE REPORT Name: LAWSON BRASWELL Room #: 362-P ADM IN M.R.#: [id number] Admission: 09/29/17 Attend Phys: Sean Harding MD Discharge: Date of : 30 Report #: [id number] THIS REPORT FOR: //name// CC: Sean Harding MD DATE OF SERVICE: 10/06/2017 PROCEDURE: EGD with biopsies. Patient of Dr. Derik Harding. INDICATION FOR PROCEDURE: This patient was found on CT scan of the abdomen to have a large hiatal hernia; and the pyloric channel, first and second and third portions of the duodenum were all markedly thickened on the CT scan, suggesting a diffuse inflammation. There was mild stranding in the adjacent soft tissues, but no definite adjacent adenopathy. So, EGD is being performed to evaluate this more closely and obtain biopsies for analysis. Note, that the patient has lost 40 pounds recently, unintentionally. Informed consent for this procedure was obtained prior to the administration of any medication. The risks of the procedure which include bleeding, perforation, infection, complications of sedation and the possibility I could miss something have been explained to the patient and her DPOA and consent was obtained from her DPOA for EGD. Propofol was slowly titrated before and during this procedure for patient comfort by the anesthesia service. The NeoReachn upper videoscope was introduced through the upper esophageal sphincter and advanced under direct visualization to the third portion of the duodenum. Findings are noted on withdrawal of the scope. The third, second and first portions of the duodenum appeared normal, internally. I did biopsy the duodenal bulb twice for histopathology but I see no other abnormalities. The papilla is easily located and appears normal. The pylorus does appear thickened. Biopsies were obtained x 2 from the pylorus for histopathology. The antrum appears thickened, erythematous and edematous and biopsies were obtained x 4 from the antrum for histopathology. Good hemostasis was noted after all of these biopsies. The body of the stomach appeared normal. Retroflex view of the cardia and fundus revealed further edema and erythema and biopsies were obtained from the fundus and cardia of the stomach for histopathology x 2. The scope was then straightened out and withdrawn into the patient's esophagus, Z-line is appropriately located at the top the gastric folds and appears normal. The patient does have a hiatal hernia that is fairly good sized. The esophageal mucosa itself appears normal throughout its entirety. The scope was withdrawn. The patient went to the recovery area in stable condition. She tolerated the procedure well. [address] [address] PROCEDURE REPORT Name: LAWSON BRASWELL Room #: 362-P [facility] IN .R.#: [id number] Admission: 09/29/17 Attend Phys: Sean Harding MD Discharge: Date of : 30 Report #: [id number] IMPRESSION: 1. Edematous-appearing stomach as described previously. 2. Normal-appearing esophagus and duodenum. 3. Moderately large hiatal hernia. RECOMMENDATIONS: To await the biopsy results. Thank you very much once again for allowing me to participate in her care. <ELECTRONICALLY SIGNED> By: Yajaira Kramer DO 10/07/17 [id number] Yajaira Kramer DO /nt
--- NOTE | ~2017-09-29 | D ---
[facility] [place] [address] DISCHARGE SUMMARY Name: LAWSON BRASWELL Room #: 436-P [facility] IN ..#: [id number] Admission: 09/29/17 Attend Phys: Sean Harding MD Discharge: 10/19/17 Date of : 30 Report #: [id number] THIS REPORT FOR: //name// CC: [facility] Sean Harding DATE OF SERVICE: 10/19/2017 SUMMARY OF HISTORY AND PHYSICAL: The patient presented to the Emergency Room with alterations in behavior. The family reported that she was threatening and aggressive and yelling to them that she needed to go to the hospital. They reported to the Emergency Room staff that the patient had been having more hallucinations than usual. Her potassium was low and her behavior was agitated and admission was indicated. SUMMARY OF HOSPITAL COURSE: The patient was admitted and started on her usual medications. She was seen on psychiatric consultation by Dr. Santa Lazaro, who knew the patient from earlier admissions in 2017 at [facility], and an admission at [facility] and also at [facility] of the middle of this year. She was quite impressed that the patient had lost weight, and indeed when checking her records she had lost 40 pounds over the previous 9 months. Her valproic acid level on admission was undetectable and note was made that it was also undetectable when she was admitted in November 2016. This was further pursued with the telephone call to [facility] where she gets all of her medications, and it was surmised that she had essentially not been taking any of her medications since early June 2017. So, her main part of her goal of this hospital stay was to resume her usual home medications, which have been effective for controlling her paranoid schizophrenic symptoms. She did have the home medications resumed over the following 3 weeks that she was in the hospital. Initially, it was a trick to get her to take the medications, she would refuse to swallow them, and at times required IM doses of antipsychotics to control her agitation. Slowly the medication began to take effect and at the end of her hospital stay, her dose was adjusted to give control of her paranoid schizophrenia symptoms without an excessive amount of daytime sedation. At various times during her hospital stay, she was not steady enough to walk, and other times she could walk up and down the halls with the assistance of a walker. The dose that was effective for her psychiatric medication was Depakote extended release sprinkles 500 mg twice daily, which could be given with applesauce. Also quetiapine 200 mg of the immediate release form close to bedtime once a day. Haloperidol 5 mg orally every 4 hours was seldom required as p.r.n. for agitation during the second half of her hospital stay. [address] [address] DISCHARGE SUMMARY Name: LAWSON BRASWELL Room #: 436-P [facility] IN M.R.#: [id number] Admission: 09/29/17 Attend Phys: Sean Harding MD Discharge: 10/19/17 Date of : 30 Report #: [id number] Evaluation of her weight loss, because of a previous history of grade C esophagitis and because of abnormal thickened stomach shadows on her CT scan of her abdomen, included an EGD. Her EGD showed that the third, second and first portions of the duodenum appeared normal. Previously, the duodenum had contained vascular ectasias that were bleeding and caused an iron deficiency anemia, several years in the past. The antrum was thickened, erythematous and edematous. The body of the stomach was normal. Edema and erythema were seen in the fundus, in the cardia. A large hiatal hernia was commented upon. The esophageal mucosa was normal throughout its entirety. She had a brief episode of paroxysmal atrial fibrillation earlier in her hospital stay, but as her home dose of amiodarone was resumed (after having been off of it for several months), she returned to normal sinus rhythm. Towards the end of her hospital stay, her dose was reduced from 200 mg to 100 mg a day and she remained in sinus rhythm. She had a cavitary left lower lobe pneumonia diagnosed in November 2016. When she returned to the hospital several months later, after inadequate followup (noncompliance, was not making and following appointments), a residual infiltrate persisted. A CT scan of the chest was done on this hospital stay that showed complete resolution of the previous cavitary pneumonia. She was hypertensive when she first came. Depending upon her state of agitation, her blood pressure could be very high, or if relaxing and having recently received medication, her blood pressure could be on the low side. At the end of her hospital stay, her blood pressures were in an acceptable range from a low of 124/62 to a high of 187/86 on her following regimen: Lisinopril 20 mg twice daily and amlodipine 5 mg once daily in the morning. Hydralazine 25 mg orally every 6 hours was seldom used p.r.n. for when her blood pressure remained excessively high. She was found to have a folate deficiency and replacement of her folate was started with once daily vitamins that contained a full milligram of folic acid. B12 defficiency had been manged at home with B12 injections. B12 level was 465 but her methylmalonic acid level was high, indicating that she needed replacement. She had several episodes of coughing. She did not aspirate and her chest x-ray remained clear. At times, she was awake and alert and pasted the swallowing examinations; however, often at the end of her hospital stay, she was not quite so bright awake, and the speech therapist recommended that she continue with nectar thickened liquids and pureed diet. On the nectar thickened liquids, she did drink enough that she was able to keep her creatinine at 1.3 and 1.4, [facility] [address] [place] [address] DISCHARGE SUMMARY Name: LAWSON BRASWELL Room #: 436-P [facility].#: [id number] Admission: 09/29/17 Attend Phys: Sean Harding MD Discharge: 10/19/17 Date of : 30 Report #: [id number] adequate hydration for her considering the circumstances. She was also able to eat 3/4 to a complete meal tray with the pureed food. She was, however, hand fed by the nursing manager home healthcare, but did eat well. She does have a diagnosis of COPD, and at times with her coughing, she benefited from the addition of a nebulizer treatments 3 times daily. Because she has the paroxysmal atrial fibrillation, she was given ipratropium as a single agent by nebulizer 3 times daily. The 3 times daily regimen was adequate to keep her lungs clear. She weighed 130 pounds on admission, and had weighed 170 pounds in November 2016. At the end of her hospital stay, her stools were normal and varied between soft and hard. LABORATORY DATA: Her creatinine on admission was 1.2 and 1.3 at discharge. In January it had been as high as 2.6. Her potassium on admission was low at 3.0 an indicator of malnutrition. Random blood sugars was 186 on admission, but then varied between 99 and 118 without specific diabetic therapy. Her albumin on admission was 2.9 and with rehydration dropped to 2.4, which, with her history of weight loss, satisfied diagnostic criteria for severe malnutrition. Estimated GFR varied between 39 and 42, satisfying the criteria for chronic kidney disease stage 3. Ammonia level was normal at 6. Liver function tests were normal. Troponin was very minimally elevated at 0.1 on admission, and not felt to need to be repeated. Free T4 was normal at 1.4 and free T3 normal at 3.11, iron normal at 89, iron binding normal at 303, total iron binding capacity normal at 392 and percent saturation was normal at 23%. White count remained in the normal range at the time of admission it was 7.8000, hemoglobin was 11.2 on admission and dropped to 9.8 several days later with rehydration. It stayed stable at 10.9 prior to discharge. Platelets were normal. Differential was unremarkable. Valproic acid level was undetectable on admission. Once the dose of 500 mg of Depakote extended release sprinkles twice daily had been in place for several days, her valproic acid levels were 66 and 69, with 1 slightly low at 47 several days prior to discharge. TSH was mildly low at 0.081, when combined with normal free T4 and normal free T3 suggested "sick euthyroidism." Folate level was low at 7.3 possibly nutritional because it had been normal a year earlier. Vitamin B12 was normal at 497. However, the methylmalonic acid level was elevated at 487 showing B12 [facility] [address] [place] [address] DISCHARGE SUMMARY Name: LAWSON BRASWELL Room #: 436-P [facility] IN Felicia#: [id number] Admission: 09/29/17 Attend Phys: Sean Harding MD Discharge: 10/19/17 Date of : 30 Report #: [id number] deficiency. Urinalysis showed a trace of blood and a trace leukocyte esterase, but a urine culture was negative. Biopsy reports from her EGD dated 10/06/2017 showed mild to moderate focal acute superficial gastritis in the stomach. There was no evidence for H. pylori. The small bowel biopsy showed mild chronic inflammation with normal villous architecture. Portable chest x-ray showed minor left lateral atelectasis and moderate sized hiatal hernia remained stable on 10/06/2017. CT of the abdomen and pelvis showed minimal atherosclerotic calcification of the abdominal aorta, redundant colon was present with a large amount of stool. Osteophytes at multiple levels were noted in the lower thoracic and lumbar spine with vacuum disk changes as well. Marked thickening of the pyloric channel in first, second and third portions of the duodenum were noted. These showed to be normal on subsequent EGD. CT scan of the chest showed no significant abnormalities. The cavitary pneumonia from earlier in the year had completely resolved. Coronary artery calcifications were noted. The thyroid was unremarkable. CT scan of the head without contrast showed moderate generalized parenchymal volume loss as expected for her age and likely chronic small vessel ischemic changes. Lateral right frontal lobe stroke was seen along with a chronic left cerebellar stroke. DISCHARGE DIAGNOSES: 1. The patient has paranoid schizophrenia and had not been getting her medications for the previous approximately 2-1/2 to 3 months. 2. Toxic encephalopathy: with her deconditioning requiring hospitalization causing mental status changes, because she was not taking her medications that stabilized her mental condition. 3. Paroxysmal atrial fibrillation that was well controlled during her hospital stay. 4. Cavitary left lower lobe pneumonia from November 2016 shown to be completely resolved. 5. History of iron deficiency in the past caused by venous ectatic changes in the distal duodenum and proximal jejunum were noted to not be present in the current EGD, and her hemoglobin and iron studies remained stable. 6. Large hiatal hernia remained stable. 7. EGD showed gastritis in several locations, but the entire duodenum and esophagus were normal. 8. Asymptomatic coronary artery disease that was demonstrated on CT scanning of the chest. 9. History of ischemic colitis several years ago, also a manifestation of atherosclerotic vascular disease. 10. The patient was not iron deficient: Hemoglobin and iron levels were acceptable. [facility] [address] [place] [address] DISCHARGE SUMMARY Name: LAWSON BRASWELL Room #: 436-P [facility] IN ..#: [id number] Admission: 09/29/17 Attend Phys: Sean Harding MD Discharge: 10/19/17 Date of : 30 Report #: [id number] 11. B12 deficiency showed she had not been getting her the B12 monthly injections that she had been getting at home in the past: Her vitamin B12 level was normal at 497, but her methylmalonic acid level was abnormally high at 487, indicating an active deficiency. Her folate level was low at 7.3, which it had been higher in previous years. 12. "Sick euthyroid" with low TSH of 0.081 with normal free T4 of 1.4 and normal free T3 of 3.11. 13. History of previous strokes with noncontrast CT scan of the head showing a chronic lateral right frontal lobe infarction and chronic left cerebellar infarction on the background of generalized parenchymal volume loss and bilateral periventricular and subcortical white matter changes consistent with chronic small vessel ischemic disease. 14. Severe malnutrition with an albumin of 2.4 in the setting of a documented 40-pound weight loss over the previous 9 months. 15. Hypertension with the current regimen giving blood pressures between 124/62 and 187/86, avoiding the extreme low's from excessive medication and the extreme high's. 16. Stable chronic obstructive pulmonary disease. 17. Nonspecific dysphagia and cough, expected to improve as time passes on her current regimen for the paranoid schizophrenia and she becomes more active and alert . 18. Mild intermittent constipation. 19. Chronic kidney disease stage 3 that was stable. 20. Stable chronic asthma. 21. Mild diet controlled type 2 diabetes. 22. Past history of chronic multifactorial daily headaches that she did not complain of on this hospital stay. 23. Long history of restless legs syndrome that caused symptoms, she did not report those symptoms on this hospital stay; the dopamine agonist used to treat this syndrome, conceivably might conflict with dopamine antagonist used to treat her paranoid schizophrenia. 24. History of overactive bladder at night with some urinary incontinence on this hospital stay. 25. History of small patent foramen ovale being revealed on transesophageal echocardiogram at [facility] on 06/27/2009. 26. History of a hypotensive reaction to the use of Zyprexa/olanzapine at [facility], leading to the use of Haldol instead as p.r.n. 27. No adverse reactions were seen when combining amiodarone with her antipsychotic medications while she was closely monitored on telemetry during most of this hospital stay; she can use these medicines together in the future and her current doses of both types of medications are rather low. PLAN: The patient is transferred to [facility] [place] [facility] [place] and for close psychiatric management on a "level 2" [facility] [address] [place] [address] DISCHARGE SUMMARY Name: LAWSON BRASWELL Room #: 436-P [facility] IN M.R.#: [id number] Admission: 09/29/17 Attend Phys: Sean Harding MD Discharge: 10/19/17 Date of : 30 Report #: [id number] letter from the [facility]. business services associate is to inquires to the adequacy of her current power of ip technology transactions attorney, Flex Barry, because on his watch, she apparently went without medications for 3 months, and is having more prolonged recovery period from not being on medication. DISCHARGE MEDICATIONS: Amiodarone 100 mg in the morning, hydralazine 25 mg every 6 hours p.r.n. markedly elevated blood pressure over 175. Vitamin B12 should be 1000 mcg orally twice daily. Trazodone 50 mg at bedtime as needed for sleep. Divalproex extended release sprinkles 500 mg twice daily with meals -- it is essential that she have her Depakote in this form because it can be taken with meals, the capsules can be opened and sprinkled on applesauce and it can still retain the extended release effect. Dulcolax tablets 10 mg every 8 hours p.r.n. constipation. Haloperidol 5 mg orally every 6 hours p.r.n. agitation. Haloperidol 5 mg IM every 4 hours p.r.n. agitation. Ipratropium bromide inhalation solution every 4 hours by nebulizer. Lisinopril 20 mg twice daily for blood pressure. Amlodipine 5 mg once daily for blood pressure. Pantoprazole 40 mg in the morning at 7:00 a.m. before breakfast for diffuse gastritis, vitamins including 1 mg of folic acid once daily for folate replacement, quetiapine fumarate (immediate release) 200 mg at bedtime. Vitamin D3 5000 units daily. Complete laboratory need to be performed on October 25 including a complete metabolic profile, CBC, B12, folate, methylmalonic acid, and valproic acid level to ascertain her progress and for adequate medication dosage management in the following week. business services associate needs to initiate inquiry as to the adequacy of her current power of ip technology transactions attorney. <ELECTRONICALLY SIGNED> By: Sean Harding MD 10/20/17 [id number] Sean Harding MD /nt
[2017-09-29 17:03] VITALS: BP 170/91
[2017-09-29 18:27] LABS: URINE BILIRUBIN NEGATIVE (Negative); URINE BLOOD 1+ (Negative); URINE CLARITY CLEAR; URINE COLOR YELLOW; URINE GLUCOSE-RANDOM* NEGATIVE (Negative); URINE KETONES NEGATIVE (Negative); URINE NITRITE-REFLEX NEGATIVE (Negative); URINE PROTEIN (DIPSTICK) NEGATIVE (Negative); URINE UROBILINOGEN 0.2 E.U./dl (0.2-1.0)
[2017-09-29 18:28] LABS: URINE LEUKOCYTES-REFLEX TRACE (Negative)
[2017-09-29 18:32] LABS: SQUAMOUS 0-3 Few /LPF (0-3)
[2017-09-29 18:33] LABS: BACTERIA-REFLEX None Seen /HPF (None Seen); CASTS None Seen /LPF (None Seen); CRYSTALS None Seen /LPF (None Seen); URINE RBC 3-10 Few /HPF (0-2); URINE WBC-REFLEX 0-5 Rare /HPF (0-5)
[2017-09-29 18:56] LABS: HEMATOCRIT 35.8 % (37.0-47.0); HEMOGLOBIN 11.2 gm/dL (12.0-15.0); MCH 25.8 pg (26.0-34.0); MCHC 31.3 g/dL (28.0-37.0); MCV 82.4 fL (80.0-100.0); RBC 4.35 mil/uL (4.20-5.00); RDW 21.6 % (10.5-14.5); WBC 7.8 thou/uL (4.0-11.0)
[2017-09-29 19:09] LABS: CALCIUM 9.3 mg/dL (8.5-10.1); CREATININE 1.2 mg/dL (0.6-1.0)
[2017-09-29 19:17] LABS: TROPONIN-I 0.1 ng/mL (<0.06)
[2017-09-29 20:29] VITALS: BP 179/79
[2017-09-29 20:35] VITALS: BP 202/86
[2017-09-30 00:35] VITALS: BP 160/71
[2017-09-30 02:16] LABS: URINE BILIRUBIN NEGATIVE (Negative); URINE BLOOD TRACE (Negative); URINE CLARITY SL CLOUDY; URINE COLOR YELLOW; URINE GLUCOSE-RANDOM* NEGATIVE (Negative); URINE KETONES NEGATIVE (Negative); URINE LEUKOCYTES NEGATIVE (Negative); URINE NITRITE NEGATIVE (Negative); URINE PROTEIN (DIPSTICK) NEGATIVE (Negative); URINE UROBILINOGEN 0.2 E.U./dl (0.2-1.0)
[2017-09-30 04:49] VITALS: BP 175/100
[2017-09-30 05:57] LABS: ABSOLUTE NEUTROPHILS 4.3 thou/uL (1.4-8.2); EOSINOPHILS 3.1 % (0.0-3.0); HEMATOCRIT 33.4 % (37.0-47.0); HEMOGLOBIN 10.6 gm/dL (12.0-15.0); LYMPHOCYTES 31.2 % (24.0-44.0); MCH 25.8 pg (26.0-34.0); MCHC 31.7 g/dL (28.0-37.0); MCV 81.4 fL (80.0-100.0); MONOCYTES 9.4 % (1.0-8.0); PLATELET COUNT 207 thou/uL (150-400); POLYS 55.3 % (36.0-66.0); RBC 4.11 mil/uL (4.20-5.00); RDW 21.6 % (10.5-14.5); WBC 7.8 thou/uL (4.0-11.0)
[2017-09-30 06:22] LABS: ALBUMIN 2.9 g/dL (3.4-5.0); CALCIUM 8.9 mg/dL (8.5-10.1); CREATININE 1.3 mg/dL (0.6-1.0); POTASSIUM 3.8 mmol/L (3.5-5.1); TOTAL BILIRUBIN 0.3 mg/dL (<0.1-1.0); TOTAL PROTEIN 6.5 g/dL (6.4-8.2)
[2017-09-30 08:13] VITALS: BP 170/92
[2017-09-30 15:30] VITALS: BP 204/108
[2017-09-30 19:35] VITALS: BP 204/72
[2017-09-30 23:20] VITALS: BP 194/77
[2017-10-01 00:40] VITALS: BP 177/54
[2017-10-01 04:58] VITALS: BP 178/78
[2017-10-01 08:08] VITALS: BP 165/110
[2017-10-01 12:21] VITALS: BP 179/93
[2017-10-01 15:36] VITALS: BP 138/52
[2017-10-01 19:40] VITALS: BP 150/66
[2017-10-02 04:50] VITALS: BP 176/91
[2017-10-02 08:00] VITALS: BP 172/81
[2017-10-02 12:45] VITALS: BP 147/87
[2017-10-02 13:42] LABS: % SATURATION 23 % (20-39); IRON 89 ug/dL (50-170); TIBC 392 ug/dL (250-450)
[2017-10-02 14:13] LABS: FOLIC ACID 7.3 ng/mL (8.6-58.9); TSH 0.081 uIU/mL (0.358-3.740)
[2017-10-02 15:07] VITALS: BP 145/75
[2017-10-02 19:26] VITALS: BP 141/72
[2017-10-03 05:06] VITALS: BP 133/66
[2017-10-03 05:18] LABS: ABSOLUTE NEUTROPHILS 3.6 thou/uL (1.4-8.2); BASOPHILS 0.4 % (0.0-2.0); EOSINOPHILS 3.8 % (0.0-3.0); HEMATOCRIT 31.2 % (37.0-47.0); HEMOGLOBIN 9.8 gm/dL (12.0-15.0); LYMPHOCYTES 39.1 % (24.0-44.0); MCH 26.1 pg (26.0-34.0); MCHC 31.5 g/dL (28.0-37.0); MCV 82.6 fL (80.0-100.0); MONOCYTES 9.3 % (1.0-8.0); PLATELET COUNT 208 thou/uL (150-400); POLYS 47.4 % (36.0-66.0); RBC 3.77 mil/uL (4.20-5.00); RDW 22.1 % (10.5-14.5); WBC 7.6 thou/uL (4.0-11.0)
[2017-10-03 05:35] LABS: ALBUMIN 2.4 g/dL (3.4-5.0); CALCIUM 9.3 mg/dL (8.5-10.1); CREATININE 1.3 mg/dL (0.6-1.0); POTASSIUM 4.5 mmol/L (3.5-5.1); TOTAL BILIRUBIN 0.3 mg/dL (<0.1-1.0); TOTAL PROTEIN 6.1 g/dL (6.4-8.2)
[2017-10-03 07:19] VITALS: BP 144/59
[2017-10-03 12:16] VITALS: BP 132/57
[2017-10-03 15:45] VITALS: BP 133/76
[2017-10-03 19:18] VITALS: BP 112/65
[2017-10-04 04:16] VITALS: BP 142/66
[2017-10-04 07:17] VITALS: BP 143/98
[2017-10-04 15:29] VITALS: BP 137/56
[2017-10-04 21:39] VITALS: BP 145/89
[2017-10-05 04:15] VITALS: BP 171/86
[2017-10-05 07:10] VITALS: BP 152/71
[2017-10-05 07:29] VITALS: BP 144/66
[2017-10-05 11:48] VITALS: BP 138/72
[2017-10-05 19:16] VITALS: BP 133/71
[2017-10-06 03:59] VITALS: BP 132/93
[2017-10-06 04:53] LABS: HEMATOCRIT 31.2 % (37.0-47.0); HEMOGLOBIN 10.2 gm/dL (12.0-15.0); MCH 26.7 pg (26.0-34.0); MCHC 32.8 g/dL (28.0-37.0); MCV 81.6 fL (80.0-100.0); RBC 3.83 mil/uL (4.20-5.00); RDW 21.6 % (10.5-14.5); WBC 6.6 thou/uL (4.0-11.0)
[2017-10-06 05:24] LABS: CALCIUM 8.5 mg/dL (8.5-10.1); CREATININE 1.2 mg/dL (0.6-1.0); POTASSIUM 4.8 mmol/L (3.5-5.1)
[2017-10-06 07:29] VITALS: BP 119/62
[2017-10-06 11:53] VITALS: BP 171/84
[2017-10-06 15:45] VITALS: BP 155/62
[2017-10-06 19:20] VITALS: BP 177/80
[2017-10-07] VITALS (8 sets, daily range): BP systolic 103–187; BP diastolic 60–97
[2017-10-08 03:36] VITALS: BP 151/77
[2017-10-08 07:39] VITALS: BP 109/60
[2017-10-08 16:00] VITALS: BP 165/81
[2017-10-08 20:30] VITALS: BP 140/65
[2017-10-09 02:50] VITALS: BP 107/66
[2017-10-09 07:17] VITALS: BP 137/57
[2017-10-09 15:00] VITALS: BP 188/88
[2017-10-09 20:05] VITALS: BP 158/81
[2017-10-10 05:58] VITALS: BP 182/92
[2017-10-10 06:49] LABS: ALBUMIN 2.5 g/dL (3.4-5.0); CALCIUM 8.8 mg/dL (8.5-10.1); CREATININE 1.2 mg/dL (0.6-1.0); POTASSIUM 4.2 mmol/L (3.5-5.1); TOTAL BILIRUBIN 0.2 mg/dL (<0.1-1.0); TOTAL PROTEIN 6.2 g/dL (6.4-8.2)
[2017-10-10 07:29] LABS: HEMATOCRIT 32.8 % (37.0-47.0); HEMOGLOBIN 10.6 gm/dL (12.0-15.0); MCH 26.6 pg (26.0-34.0); MCHC 32.2 g/dL (28.0-37.0); MCV 82.5 fL (80.0-100.0); RBC 3.98 mil/uL (4.20-5.00); RDW 21.2 % (10.5-14.5); WBC 6.5 thou/uL (4.0-11.0)
[2017-10-10 07:30] VITALS: BP 176/98
[2017-10-10 11:29] VITALS: BP 137/60
[2017-10-10 16:00] VITALS: BP 141/75
[2017-10-10 19:42] VITALS: BP 156/86
[2017-10-11 02:57] VITALS: BP 171/80
[2017-10-11 07:10] VITALS: BP 188/85
[2017-10-11 15:41] VITALS: BP 164/71
[2017-10-11 19:01] VITALS: BP 176/93
[2017-10-12 05:56] VITALS: BP 175/80
[2017-10-12 07:42] VITALS: BP 146/82
[2017-10-12 17:31] VITALS: BP 130/75
[2017-10-12 19:45] VITALS: BP 162/73
[2017-10-13 05:32] LABS: HEMATOCRIT 32.3 % (37.0-47.0); HEMOGLOBIN 10.5 gm/dL (12.0-15.0); MCH 26.8 pg (26.0-34.0); MCHC 32.5 g/dL (28.0-37.0); MCV 82.4 fL (80.0-100.0); RBC 3.92 mil/uL (4.20-5.00); RDW 21.2 % (10.5-14.5); WBC 7.8 thou/uL (4.0-11.0)
[2017-10-13 05:44] VITALS: BP 143/73
[2017-10-13 05:50] LABS: ALBUMIN 2.2 g/dL (3.4-5.0); CALCIUM 8.8 mg/dL (8.5-10.1); CREATININE 1.4 mg/dL (0.6-1.0); POTASSIUM 4.4 mmol/L (3.5-5.1); TOTAL BILIRUBIN 0.2 mg/dL (<0.1-1.0); TOTAL PROTEIN 6.3 g/dL (6.4-8.2)
[2017-10-13 07:42] VITALS: BP 124/62
[2017-10-13 16:54] VITALS: BP 168/79
[2017-10-13 20:00] VITALS: BP 163/84
[2017-10-14 04:20] VITALS: BP 186/86
[2017-10-14 09:30] VITALS: BP 187/86
[2017-10-14 11:25] VITALS: BP 161/66
[2017-10-14 15:55] VITALS: BP 175/78
[2017-10-14 19:45] VITALS: BP 188/78
[2017-10-15 03:08] VITALS: BP 181/87
[2017-10-15 06:18] LABS: ALBUMIN 2.6 g/dL (3.4-5.0); POTASSIUM 3.8 mmol/L (3.5-5.1); TOTAL BILIRUBIN 0.2 mg/dL (<0.1-1.0); TOTAL PROTEIN 6.6 g/dL (6.4-8.2)
[2017-10-15 08:00] VITALS: BP 169/102
[2017-10-15 12:00] VITALS: BP 134/77
[2017-10-15 16:00] VITALS: BP 165/79
[2017-10-15 21:30] VITALS: BP 147/77
[2017-10-16 05:20] VITALS: BP 100/54
[2017-10-16 07:54] VITALS: BP 118/64
[2017-10-16 16:36] VITALS: BP 123/55
[2017-10-16 19:20] VITALS: BP 140/67
[2017-10-17 04:50] VITALS: BP 121/51
[2017-10-17 06:38] VITALS: BP 138/62
[2017-10-17 07:42] LABS: HEMATOCRIT 31.9 % (37.0-47.0); HEMOGLOBIN 10.2 gm/dL (12.0-15.0); MCH 27.1 pg (26.0-34.0); MCHC 32.1 g/dL (28.0-37.0); MCV 84.4 fL (80.0-100.0); RBC 3.78 mil/uL (4.20-5.00); RDW 20.2 % (10.5-14.5); WBC 8.4 thou/uL (4.0-11.0)
[2017-10-17 07:55] LABS: ALBUMIN 2.1 g/dL (3.4-5.0); CALCIUM 8.8 mg/dL (8.5-10.1); CREATININE 1.4 mg/dL (0.6-1.0); POTASSIUM 4.3 mmol/L (3.5-5.1); TOTAL BILIRUBIN 0.2 mg/dL (<0.1-1.0)
[2017-10-17 16:00] VITALS: BP 157/71
[2017-10-17 20:42] VITALS: BP 166/70
[2017-10-18 04:40] VITALS: BP 146/70
[2017-10-18 05:32] LABS: HEMATOCRIT 33.4 % (37.0-47.0); HEMOGLOBIN 10.9 gm/dL (12.0-15.0); MCH 27.3 pg (26.0-34.0); MCHC 32.7 g/dL (28.0-37.0); MCV 83.6 fL (80.0-100.0); RDW 20.2 % (10.5-14.5); WBC 8.3 thou/uL (4.0-11.0)
[2017-10-18 05:35] LABS: CALCIUM 8.9 mg/dL (8.5-10.1); CREATININE 1.3 mg/dL (0.6-1.0); POTASSIUM 4.1 mmol/L (3.5-5.1)
[2017-10-18 07:13] VITALS: BP 156/55
[2017-10-18 16:07] VITALS: BP 153/71
[2017-10-18 19:27] VITALS: BP 153/84
[2017-10-19 03:29] VITALS: BP 177/90
[2017-10-19 08:00] VITALS: BP 182/74
[2017-10-19 08:32] VITALS: BP 177/90
[2017-10-19] MEDS ORDERED: DULCOLAX5 MG PO (16:05)
[2017-10-19] MEDS ORDERED: TRAZODONE HCL50 MG PO (16:05)
[2017-10-19] MEDS ORDERED: LISINOPRIL20 MG PO (16:05)
[2017-10-19] MEDS ORDERED: PACERONE 200 M200 M1 PO (16:05)
[2017-10-19] MEDS ORDERED: PANTOPRAZOLE SO40 M1 PO (16:05)
[2017-10-19] MEDS ORDERED: DIVALPROEX SOD125 MG PO (16:05)
[2017-10-19] MEDS ORDERED: AMLODIPINE BESYL5 MG PO (16:05)
[2017-10-19] MEDS ORDERED: PRENATAL PO (16:05)
[2017-10-19] MEDS ORDERED: HALOPERIDOL5 MG/1 ML IM (16:05)
[2017-10-19] MEDS ORDERED: HALOPERIDOL 5 MG5 MG PO (16:05)
[2017-10-19] MEDS ORDERED: HYDRALAZINE 2525 MG PO (16:05)
[2017-10-19] MEDS ORDERED: VITAMIN D5000 UNIT PO (16:05)
[2017-10-19] MEDS ORDERED: IPRATROPIU0.2 MG/1 M INH (16:05)
[2017-10-19] MEDS ORDERED: QUETIAPINE FUM100 MG PO (16:08)
[2018-06-07] MEDS ORDERED: FLAGYL500 MG PO (07:09)
[2018-06-07] MEDS ORDERED: CIPRO500 MG PO (07:09)
== END 2017-10-19 17:03 | DRG 885 ==
LOC: ER 17:02 → 3W 20:27 → EROBS 20:27 → 3W 20:30 → 4S 10-17 06:37
PROVIDERS: Emergency Medicine; Internal Medicine
PROC: 0DB78ZX Excision of Stomach, Pylorus, Via Natural or Artificial Opening Endoscopic, Diagnostic (ICD-10-PCS; principal; 2017-10-06)
PROC: 0DB98ZX Excision of Duodenum, Via Natural or Artificial Opening Endoscopic, Diagnostic (ICD-10-PCS; principal; 2017-10-06)
DX: F20.0 Paranoid schizophrenia (principal); J18.9 Pneumonia, unspecified organism; E43 Unspecified severe protein-calorie malnutrition; G92 Toxic encephalopathy; N39.0 Urinary tract infection, site not specified; Q21.1 Atrial septal defect; K22.10 Ulcer of esophagus without bleeding; J44.0 Chronic obstructive pulmonary disease with (acute) lower respiratory infection; I48.0 Paroxysmal atrial fibrillation; K44.9 Diaphragmatic hernia without obstruction or gangrene; I25.10 Atherosclerotic heart disease of native coronary artery without angina pectoris; I12.9 Hypertensive chronic kidney disease with stage 1 through stage 4 chronic kidney disease, or unspecified chronic kidney disease; N18.3 Chronic kidney disease, stage 3 (moderate); E11.22 Type 2 diabetes mellitus with diabetic chronic kidney disease; G25.81 Restless legs syndrome; E53.8 Deficiency of other specified B group vitamins; D50.9 Iron deficiency anemia, unspecified; F41.9 Anxiety disorder, unspecified; K29.70 Gastritis, unspecified, without bleeding; F03.90 Unspecified dementia, unspecified severity, without behavioral disturbance, psychotic disturbance, mood disturbance, and anxiety; K59.00 Constipation, unspecified; R13.12 Dysphagia, oropharyngeal phase; D64.9 Anemia, unspecified; E86.0 Dehydration; Z53.29 Procedure and treatment not carried out because of patient's decision for other reasons; Z86.010 Personal history of colon polyps; Z91.14 Patient's other noncompliance with medication regimen; Z86.73 Personal history of transient ischemic attack (TIA), and cerebral infarction without residual deficits; Z88.1 Allergy status to other antibiotic agents; Z88.0 Allergy status to penicillin; Z88.8 Allergy status to other drugs, medicaments and biological substances; Z79.899 Other long term (current) drug therapy; Z87.01 Personal history of pneumonia (recurrent); Z68.22 Body mass index [BMI] 22.0-22.9, adult
CPT/HCPCS: 10102; 10779; 10879; 62110; 62900

== ENCOUNTER 2017-12-26 13:49 | Inpatient (IN) | payer OTHER ==
[~2017-12-26] VITALS: Ht 165.1 cm; Wt 52.8 kg
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
--- NOTE | ~2017-12-26 | EKG ---
[address] [place] [address] ELECTROCARDIOGRAM REPORT Name: LAWSON BRASWELL Room #: 445-P ADM IN .R.#: [id number] Admission: 12/26/17 Attend Phys: Sean Harding MD Discharge: Date of : 30 Report #: [id number] THIS REPORT FOR: //name// [facility] Test Date: 2017-12-28 Test Time: 11:11:40 Pat Name: LAWSON BRASWELL Department: Room: 445 Gender: F Analytical Lab Analyst: Areli IRIZARRY : 1930 Requested By: Sean Harding Order Number: [id number] MD: Anthony Sommer Measurements Intervals Mcdonald Rate: 75 P: 23 MT: 169 QRS: -13 QRSD: 87 T: 38 QT: 419 QTc: 468 Interpretive Statements Sinus rhythm Anterior infarct, old Compared to ECG 02/07/2017 16:06:13 No significant change was found Electronically Signed On 12-28-2017 16:15:16 INSTALLATION HELPER by Anthony Sommer [email or web address] <ELECTRONICALLY SIGNED> By: Anthony Sommer MD, [facility] 12/28/17 1615 1111 [id number] Anthony Sommer MD, FAC /EPI
[~2017-12-26 13:49] MED LIST changes: +AMLODIPINE BESYL5 MG PO; +DULCOLAX5 MG PO; +HALOPERIDOL 5 MG5 MG PO; +HALOPERIDOL5 MG/1 ML IM; +HYDRALAZINE 2525 MG PO; +LISINOPRIL20 MG PO; +PANTOPRAZOLE SO40 M1 PO; +PRENATAL PO; +QUETIAPINE FUM100 MG PO; +TRAZODONE HCL50 MG PO; +VITAMIN D5000 UNIT PO
[2017-12-26 17:00] VITALS: BP 151/59
[2017-12-26 18:38] LABS: HEMATOCRIT 37.4 % (37.0-47.0); MCH 28.6 pg (26.0-34.0); MCHC 32.1 g/dL (28.0-37.0); PLATELET COUNT 218 thou/uL (150-400); RDW 17.4 % (10.5-14.5); WBC 7.2 thou/uL (4.0-11.0)
[2017-12-26 18:58] LABS: ALBUMIN 2.8 g/dL (3.4-5.0); CALCIUM 9.2 mg/dL (8.5-10.1); CREATININE 1.3 mg/dL (0.6-1.0); POTASSIUM 3.7 mmol/L (3.5-5.1); TOTAL BILIRUBIN 0.2 mg/dL (<0.1-1.0); TOTAL PROTEIN 6.9 g/dL (6.4-8.2)
[2017-12-26 19:30] VITALS: BP 151/71
[2017-12-26 19:37] LABS: ABSOLUTE NEUTROPHILS 4.1 thou/uL (1.4-8.2)
[2017-12-27 01:43] VITALS: BP 159/98
[2017-12-27 04:14] VITALS: BP 148/83
[2017-12-27 04:35] LABS: ALBUMIN 2.4 g/dL (3.4-5.0); CALCIUM 8.4 mg/dL (8.5-10.1); POTASSIUM 3.5 mmol/L (3.5-5.1); TOTAL BILIRUBIN 0.2 mg/dL (<0.1-1.0); TOTAL PROTEIN 6.3 g/dL (6.4-8.2)
[2017-12-27 04:52] LABS: FOLIC ACID 12.7 ng/mL (8.6-58.9); TSH 0.935 uIU/mL (0.358-3.740)
[2017-12-27 08:35] VITALS: BP 139/74
[2017-12-27 16:16] VITALS: BP 115/61
[2017-12-27 19:24] VITALS: BP 116/56
[2017-12-28 04:10] VITALS: BP 126/64
[2017-12-28 06:36] LABS: URINE BILIRUBIN NEGATIVE (Negative); URINE BLOOD NEGATIVE (Negative); URINE CLARITY CLEAR; URINE COLOR YELLOW; URINE GLUCOSE-RANDOM* NEGATIVE (Negative); URINE KETONES NEGATIVE (Negative); URINE NITRITE-REFLEX NEGATIVE (Negative); URINE PROTEIN (DIPSTICK) TRACE (Negative); URINE UROBILINOGEN 0.2 E.U./dl (0.2-1.0)
[2017-12-28 06:38] LABS: URINE LEUKOCYTES-REFLEX 2+ (Negative)
[2017-12-28 08:00] VITALS: BP 115/67
[2017-12-28 08:31] LABS: CASTS None Seen /LPF (None Seen); CRYSTALS None Seen /LPF (None Seen); SQUAMOUS 0-3 Few /LPF (0-3); URINE WBC-REFLEX >25 Many /HPF (0-5)
[2017-12-28 08:32] LABS: BACTERIA-REFLEX >30 Many /HPF (None Seen); URINE RBC None Seen /HPF (0-2)
[2017-12-28 09:48] LABS: HEMATOCRIT 35.1 % (37.0-47.0); MCH 28.9 pg (26.0-34.0); MCHC 32.2 g/dL (28.0-37.0); MCV 89.7 fL (80.0-100.0); RBC 3.92 mil/uL (4.20-5.00); RDW 17.4 % (10.5-14.5); WBC 7.8 thou/uL (4.0-11.0)
[2017-12-28 09:55] LABS: HEMOGLOBIN 11.3 gm/dL (12.0-15.0)
[2017-12-28 09:58] LABS: CALCIUM 9.1 mg/dL (8.5-10.1); CREATININE 1.4 mg/dL (0.6-1.0); POTASSIUM 4.2 mmol/L (3.5-5.1)
[2017-12-28 16:00] VITALS: BP 111/62
[2017-12-28 20:33] VITALS: BP 167/69
[2017-12-29 06:13] VITALS: BP 153/67
[2017-12-29 06:22] LABS: CALCIUM 9.1 mg/dL (8.5-10.1); CREATININE 1.3 mg/dL (0.6-1.0); POTASSIUM 4.4 mmol/L (3.5-5.1)
[2017-12-29 08:00] VITALS: BP 153/73
[2017-12-29 16:19] VITALS: BP 176/76
[2017-12-29 19:28] VITALS: BP 136/76
[2017-12-30 04:26] VITALS: BP 159/72
[2017-12-30 08:00] VITALS: BP 174/86
[2017-12-30 16:00] VITALS: BP 143/80
[2017-12-30 19:43] VITALS: BP 175/75
[2017-12-31 02:56] VITALS: BP 147/87
[2017-12-31 06:11] LABS: CREATININE 1.5 mg/dL (0.6-1.0); POTASSIUM 4.5 mmol/L (3.5-5.1)
[2017-12-31 08:16] VITALS: BP 149/87
[2017-12-31 16:15] VITALS: BP 128/61
[2017-12-31 21:04] VITALS: BP 149/73
[2018-01-01 08:20] VITALS: BP 208/95
[2018-01-01 16:46] VITALS: BP 149/73
[2018-01-02 04:58] VITALS: BP 175/75
[2018-01-02 07:24] LABS: HEMATOCRIT 34.4 % (37.0-47.0); HEMOGLOBIN 11.1 gm/dL (12.0-15.0); MCH 28.6 pg (26.0-34.0); MCHC 32.2 g/dL (28.0-37.0); MCV 88.9 fL (80.0-100.0); RBC 3.87 mil/uL (4.20-5.00); RDW 17.3 % (10.5-14.5)
[2018-01-02 07:34] LABS: CREATININE 1.6 mg/dL (0.6-1.0); POTASSIUM 4.6 mmol/L (3.5-5.1)
[2018-01-02 08:00] VITALS: BP 144/67
[2018-01-02 16:00] VITALS: BP 119/61
[2018-01-02 23:14] VITALS: BP 133/67
[2018-01-03 07:11] LABS: HEMOGLOBIN 11.2 gm/dL (12.0-15.0); MCH 28.7 pg (26.0-34.0); MCV 89.6 fL (80.0-100.0); RBC 3.9 mil/uL (4.20-5.00); RDW 17.1 % (10.5-14.5); WBC 7.1 thou/uL (4.0-11.0)
[2018-01-03 07:18] LABS: CALCIUM 8.9 mg/dL (8.5-10.1); CREATININE 1.6 mg/dL (0.6-1.0); POTASSIUM 5.2 mmol/L (3.5-5.1)
[2018-01-03 08:00] VITALS: BP 168/68
[2018-01-03 16:00] VITALS: BP 123/57
[2018-01-03 21:00] VITALS: BP 148/80
[2018-01-04 03:07] VITALS: BP 180/74
[2018-01-04 12:15] VITALS: BP 167/70
[2018-01-04 15:47] VITALS: BP 152/71
[2018-01-04 19:13] VITALS: BP 149/71
[2018-01-05 03:45] VITALS: BP 186/89
[2018-01-05 05:53] LABS: HEMATOCRIT 34.3 % (37.0-47.0); HEMOGLOBIN 11.2 gm/dL (12.0-15.0); MCH 29.1 pg (26.0-34.0); MCHC 32.6 g/dL (28.0-37.0); MCV 89.3 fL (80.0-100.0); RBC 3.84 mil/uL (4.20-5.00); RDW 17.1 % (10.5-14.5); WBC 8.1 thou/uL (4.0-11.0)
[2018-01-05 06:00] LABS: CALCIUM 8.9 mg/dL (8.5-10.1); CREATININE 1.2 mg/dL (0.6-1.0); POTASSIUM 4.7 mmol/L (3.5-5.1)
[2018-01-05 08:26] VITALS: BP 151/82
[2018-01-05 16:33] VITALS: BP 120/59
[2018-01-05 21:12] VITALS: BP 153/73
[2018-01-06 03:24] VITALS: BP 185/77
[2018-01-06 08:30] VITALS: BP 182/88
[2018-01-06 16:31] VITALS: BP 142/70
[2018-01-06 19:54] VITALS: BP 136/69
[2018-01-07 03:33] VITALS: BP 198/75; BP 206/89
[2018-01-07 08:00] VITALS: BP 148/101
[2018-01-07 16:00] VITALS: BP 168/87
[2018-01-07 19:18] VITALS: BP 147/90
[2018-01-08 00:42] VITALS: BP 177/95
[2018-01-08 04:40] VITALS: BP 191/94
[2018-01-08 05:46] LABS: CALCIUM 9.1 mg/dL (8.5-10.1); CREATININE 1.4 mg/dL (0.6-1.0); POTASSIUM 3.5 mmol/L (3.5-5.1); TOTAL BILIRUBIN 0.3 mg/dL (<0.1-1.0); TOTAL PROTEIN 7.6 g/dL (6.4-8.2)
[2018-01-08 07:24] VITALS: BP 183/102
[2018-01-08 15:40] VITALS: BP 147/79
[2018-01-08 20:32] VITALS: BP 150/73
[2018-01-09 05:33] VITALS: BP 172/88
[2018-01-09 08:00] VITALS: BP 126/69
[2018-01-09 15:48] VITALS: BP 183/112
[2018-01-09 17:34] VITALS: BP 137/71
[2018-01-09 20:00] VITALS: BP 152/75
[2018-01-10 05:30] VITALS: BP 132/75
[2018-01-10 05:54] LABS: HEMATOCRIT 28.4 % (37.0-47.0); HEMOGLOBIN 9.4 gm/dL (12.0-15.0); MCH 29.5 pg (26.0-34.0); MCHC 33.2 g/dL (28.0-37.0); MCV 88.9 fL (80.0-100.0); RBC 3.2 mil/uL (4.20-5.00); RDW 17.5 % (10.5-14.5); WBC 7.8 thou/uL (4.0-11.0)
[2018-01-10 06:09] LABS: CALCIUM 8.1 mg/dL (8.5-10.1); CREATININE 1.4 mg/dL (0.6-1.0); POTASSIUM 4.6 mmol/L (3.5-5.1)
[2018-01-10 07:33] VITALS: BP 145/77
[2018-01-10 11:11] VITALS: BP 127/61
[2018-01-10 15:25] VITALS: BP 138/67
[2018-01-10 20:55] VITALS: BP 132/64
[2018-01-11 06:19] VITALS: BP 121/96
[2018-01-11 07:34] VITALS: BP 178/92
[2018-01-12 04:02] VITALS: BP 127/72
[2018-01-12 04:03] VITALS: BP 195/103
[2018-01-12 07:50] VITALS: BP 189/98
[2018-01-12 15:19] VITALS: BP 123/63
[2018-01-12 20:30] VITALS: BP 105/89
[2018-01-13 06:00] VITALS: BP 138/66
[2018-01-13 06:27] LABS: CALCIUM 8.9 mg/dL (8.5-10.1); CREATININE 1.3 mg/dL (0.6-1.0); POTASSIUM 4.8 mmol/L (3.5-5.1)
[2018-01-13 08:00] VITALS: BP 124/63
[2018-01-13 19:08] VITALS: BP 127/65
[2018-01-14 05:00] VITALS: BP 131/76
[2018-01-14 07:55] VITALS: BP 167/88
[2018-01-14 15:50] VITALS: BP 121/63
[2018-01-14 20:13] VITALS: BP 130/74
[2018-01-15 07:12] VITALS: BP 129/70
[2018-01-15 19:22] VITALS: BP 95/50
[2018-01-16 04:00] VITALS: BP 151/72
[2018-01-16 06:02] LABS: HEMATOCRIT 29.3 % (37.0-47.0); HEMOGLOBIN 9.7 gm/dL (12.0-15.0); MCH 29.9 pg (26.0-34.0); MCV 90.5 fL (80.0-100.0); RBC 3.24 mil/uL (4.20-5.00); RDW 17.7 % (10.5-14.5); WBC 7.7 thou/uL (4.0-11.0)
[2018-01-16 06:30] LABS: ALBUMIN 2.4 g/dL (3.4-5.0); CALCIUM 8.7 mg/dL (8.5-10.1); CREATININE 1.6 mg/dL (0.6-1.0); POTASSIUM 5.1 mmol/L (3.5-5.1); TOTAL BILIRUBIN 0.2 mg/dL (<0.1-1.0); TOTAL PROTEIN 6.4 g/dL (6.4-8.2)
[2018-01-16 07:15] VITALS: BP 149/66
[2018-01-16 15:15] VITALS: BP 112/56
[2018-01-17 12:00] VITALS: BP 181/75
[2018-01-18] VITALS: BP 181/75
[2018-01-18 00:08] VITALS: BP 163/88
[2018-01-18 15:06] VITALS: BP 110/68
[2018-01-18 20:59] VITALS: BP 98/58
[2018-01-19 06:20] VITALS: BP 150/84
[2018-01-19 16:32] VITALS: BP 120/66
[2018-01-19 20:14] VITALS: BP 120/65
[2018-01-20 06:56] LABS: HEMATOCRIT 28.6 % (37.0-47.0); HEMOGLOBIN 9.3 gm/dL (12.0-15.0); MCH 29.3 pg (26.0-34.0); MCHC 32.5 g/dL (28.0-37.0); MCV 90.3 fL (80.0-100.0); RBC 3.17 mil/uL (4.20-5.00); RDW 18.3 % (10.5-14.5); WBC 6.8 thou/uL (4.0-11.0)
[2018-01-20 07:04] LABS: ALBUMIN 2.4 g/dL (3.4-5.0); CALCIUM 8.5 mg/dL (8.5-10.1); CREATININE 1.8 mg/dL (0.6-1.0); POTASSIUM 5.5 mmol/L (3.5-5.1); TOTAL BILIRUBIN 0.2 mg/dL (<0.1-1.0); TOTAL PROTEIN 6.1 g/dL (6.4-8.2)
[2018-01-20 08:00] VITALS: BP 154/81
[2018-01-20 17:26] VITALS: BP 156/83
[2018-01-20 21:00] VITALS: BP 134/59
[2018-01-21 04:00] VITALS: BP 175/91
[2018-01-21 05:47] VITALS: BP 164/83
[2018-01-21 07:20] VITALS: BP 137/74
[2018-01-21 15:53] VITALS: BP 157/67
[2018-01-21 23:00] VITALS: BP 137/68
[2018-01-22 04:24] VITALS: BP 176/76
[2018-01-22 07:20] VITALS: BP 121/48
[2018-01-23 05:30] VITALS: BP 155/85
[2018-01-23 06:04] LABS: HEMATOCRIT 28.3 % (37.0-47.0); HEMOGLOBIN 9.4 gm/dL (12.0-15.0); MCH 30.3 pg (26.0-34.0); MCHC 33.2 g/dL (28.0-37.0); MCV 91.3 fL (80.0-100.0); RBC 3.1 mil/uL (4.20-5.00); RDW 18.1 % (10.5-14.5); WBC 7.6 thou/uL (4.0-11.0)
[2018-01-23 06:12] LABS: ALBUMIN 2.3 g/dL (3.4-5.0); CALCIUM 8.8 mg/dL (8.5-10.1); CREATININE 1.6 mg/dL (0.6-1.0); POTASSIUM 5.1 mmol/L (3.5-5.1)
[2018-01-23 07:30] VITALS: BP 170/76
[2018-01-23 13:53] VITALS: BP 170/76
[2018-01-23] MEDS ORDERED: SINGULAIR 10 MG10 M1 PO (14:04)
[2018-01-23] MEDS ORDERED: MILK OF MA2400 MG/10 PO (14:04)
[2018-01-23] MEDS ORDERED: SEROQUEL XR 30300 M1 PO (14:04)
[2018-01-23] MEDS ORDERED: DEPAKOTE ER500 MG PO (14:04)
[2018-01-23] MEDS ORDERED: OLANZAPINE ODT5 MG SUBLING (14:04)
[2018-01-23] MEDS ORDERED: FLOMAX0.4 MG PO (14:04)
[2018-01-23] MEDS ORDERED: PROZAC10 MG PO (14:04)
[2018-01-23] MEDS ORDERED: OLANZAPINE10 M2 IM (14:04)
[2018-01-23] MEDS ORDERED: LIPITOR 20 MG T20 M1 PO (14:04)
[2018-01-23] MEDS ORDERED: SEROQUEL 100 M100 M1 PO (14:04)
== END 2018-01-23 15:36 | DRG 885 ==
LOC: 4S 13:49 → EROBS 13:49 → 4S 16:31 → 4E 01-07 20:02
PROVIDERS: Internal Medicine
DX: F20.0 Paranoid schizophrenia (principal); G93.40 Encephalopathy, unspecified; E43 Unspecified severe protein-calorie malnutrition; T76.01XA Adult neglect or abandonment, suspected, initial encounter; Z68.1 Body mass index [BMI] 19.9 or less, adult; N39.0 Urinary tract infection, site not specified; I95.9 Hypotension, unspecified; I48.0 Paroxysmal atrial fibrillation; E86.0 Dehydration; F32.9 Major depressive disorder, single episode, unspecified; E53.8 Deficiency of other specified B group vitamins; I12.9 Hypertensive chronic kidney disease with stage 1 through stage 4 chronic kidney disease, or unspecified chronic kidney disease; F41.9 Anxiety disorder, unspecified; E11.22 Type 2 diabetes mellitus with diabetic chronic kidney disease; G25.81 Restless legs syndrome; J44.9 Chronic obstructive pulmonary disease, unspecified; M19.90 Unspecified osteoarthritis, unspecified site; B96.20 Unspecified Escherichia coli [E. coli] as the cause of diseases classified elsewhere; N18.3 Chronic kidney disease, stage 3 (moderate); F03.90 Unspecified dementia, unspecified severity, without behavioral disturbance, psychotic disturbance, mood disturbance, and anxiety; E86.9 Volume depletion, unspecified; Z88.0 Allergy status to penicillin; Z88.8 Allergy status to other drugs, medicaments and biological substances; Z90.49 Acquired absence of other specified parts of digestive tract; Z86.73 Personal history of transient ischemic attack (TIA), and cerebral infarction without residual deficits
CPT/HCPCS: 10102; 10783

== ENCOUNTER 2018-03-29 22:58 | Inpatient (IN) | payer OTHER ==
[~2018-03-29] VITALS: Ht 162.5 cm; Wt 66.4 kg
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
--- NOTE | ~2018-03-29 | HC ---
[facility] [place] [address] CONSULTATION Name: LAWSON BRASWELL Room #: 461-P [facility] IN ..#: [id number] Admission: 03/30/18 Attend Phys: Sean Harding MD Discharge: Date of : 30 Report #: [id number] THIS REPORT FOR: //name// CC: Sean Harding MD REASON FOR CONSULTATION: Left hip fracture. HISTORY OF PRESENT ILLNESS: The patient is an 87-year-old previously ambulatory patient who is unable to give me much of a history. She apparently fell and complained of left hip pain. She was seen in the Emergency Department, diagnosed with a left greater trochanteric hip fracture and admitted. She has recently been refusing her psychiatric medications for schizophrenia. She reports left leg pain. REVIEW OF SYSTEMS: Difficult to obtain due to the patient's mental status, however, NEUROLOGIC: Denies numbness or tingling in the extremities. MUSCULOSKELETAL: See HPI. PAST MEDICAL HISTORY: Obtained from the patient's medical record which includes schizophrenia, asthma, COPD, history of GI bleed, gastric ulcer and anemia. PAST SURGICAL HISTORY: Unknown. HOME MEDICATIONS: Include acetaminophen, cyanocobalamin, lactobacillus, Tamsulosin, atorvastatin, divalproex, olanzapine, quetiapine, montelukast sodium, amiodarone, hydralazine, amlodipine, bisacodyl, pantoprazole, cholecalciferol, chewable vitamin and docusate. ALLERGIES: CEPHALOSPORINS AND PENICILLINS. SOCIAL HISTORY: Unknown. The medical record reports no smoking or drinking alcohol. Her ambulatory status is unable to be determined. I do believe she was previously ambulatory. Nursing reports she previously has ambulated with a walker. LABORATORY DATA: Shows on 03/29/2018 white blood cell count 8.3, hemoglobin 10.4, hematocrit is 31.3, platelet count 205. INR is 1.1. Chemistry is grossly normal. PHYSICAL EXAMINATION: GENERAL: The patient is awake and alert. She is very hard of hearing. She cooperates minimally with the examination. She appears as her stated age. VITAL SIGNS: Most recent vital signs show temperature of 36.3, heart rate 73, respiration rate 17, blood pressure 147/70, and pulse oximetry is 93% on room air. [address] [address] CONSULTATION Name: LAWSON BRASWELL Room #: 461-P [facility] IN .R.#: [id number] Admission: 03/30/18 Attend Phys: Sean Harding MD Discharge: Date of : 30 Report #: [id number] EXTREMITIES: Examination of the bilateral upper extremities: Sensation is grossly intact to light touch. The skin is clean, dry and intact. She is able to make a full fist, full extension. Brisk capillary refill. She moves her bilateral shoulders, elbows, forearms and wrists without pain and without difficulty. There is no tenderness to palpation throughout the bilateral sternum and clavicles, bilateral shoulders, arms, elbows, forearms, wrists and hands. Bilateral lower extremities show some diffuse edema bilaterally. She has brisk capillary refill. She wiggles her toes. She reports sensation is intact bilaterally. She has no tenderness to palpation to the bilateral knees, legs, ankles or feet. She has tenderness at the greater trochanter on the left. No consistent tenderness on the right. She does report some diffuse pain on the left with hip range of motion, but this is inconsistent. RADIOGRAPHS: AP pelvis and AP lateral of the left hip showed a mildly displaced greater trochanteric fracture. IMPRESSION AND PLAN: Left mildly displaced greater trochanteric fracture in an 87-year-old female with schizophrenia who ambulates with a walker. At this point, I feel nonoperative treatment would be the best treatment for this patient. She has the potential to do well without surgical treatment. We will write for physical therapy. She should be a toe touch or foot flat weightbearing on the left lower extremity, and she can follow up with one of my on-call partner who will see her this weekend, and she may follow up with one of my [facility] partners. Thank you very much for allowing me to participate in the care of this patient. By: [id number] Madelin Benavides MD /celsa
--- NOTE | ~2018-03-29 | EKG ---
[place] [address] [facility] 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
[~2018-03-29 22:58] MED LIST changes: +LIPITOR 20 MG T20 M1 PO; +MILK OF MA2400 MG/10 PO; +OLANZAPINE ODT5 MG SUBLING
[2018-03-29 23:02] VITALS: BP 128/53
[2018-03-29 23:57] LABS: URINE BILIRUBIN NEGATIVE (Negative); URINE BLOOD NEGATIVE (Negative); URINE CLARITY CLEAR; URINE COLOR YELLOW; URINE GLUCOSE-RANDOM* NEGATIVE (Negative); URINE KETONES NEGATIVE (Negative); URINE LEUKOCYTES-REFLEX NEGATIVE (Negative); URINE NITRITE-REFLEX NEGATIVE (Negative); URINE PROTEIN (DIPSTICK) NEGATIVE (Negative); URINE UROBILINOGEN 0.2 E.U./dl (0.2-1.0)
[2018-03-30 00:04] LABS: ABSOLUTE NEUTROPHILS 4.4 thou/uL (1.4-8.2); BASOPHILS 0.7 % (0.0-2.0); EOSINOPHILS 4.8 % (0.0-3.0); HEMATOCRIT 31.3 % (37.0-47.0); HEMOGLOBIN 10.4 gm/dL (12.0-15.0); LYMPHOCYTES 30.5 % (24.0-44.0); MCH 30.7 pg (26.0-34.0); MCHC 33.1 g/dL (28.0-37.0); MCV 92.8 fL (80.0-100.0); MONOCYTES 10.5 % (1.0-8.0); PLATELET COUNT 205 thou/uL (150-400); POLYS 53.5 % (36.0-66.0); RBC 3.37 mil/uL (4.20-5.00); RDW 15.9 % (10.5-14.5); WBC 8.3 thou/uL (4.0-11.0)
[2018-03-30 00:07] LABS: CALCIUM 8.7 mg/dL (8.5-10.1); CREATININE 1.3 mg/dL (0.6-1.0)
[2018-03-30 00:16] LABS: APTT 27.9 Seconds (24.5-32.8); INR 1.1
[2018-03-30 01:50] VITALS: BP 151/75
[2018-03-30 02:00] VITALS: BP 151/75
[2018-03-30] MEDS ORDERED: REMERON15 MG PO (02:47)
[2018-03-30] MEDS ORDERED: PROZAC20 MG PO (02:50)
[2018-03-30 05:56] VITALS: BP 146/72
[2018-03-30 08:48] VITALS: BP 147/70
[2018-03-30 16:15] VITALS: BP 167/67
[2018-03-30 20:06] VITALS: BP 171/73
[2018-03-31 03:16] VITALS: BP 139/64
[2018-03-31 08:30] VITALS: BP 119/69
[2018-03-31 09:06] LABS: ALBUMIN 2.1 g/dL (3.4-5.0); CALCIUM 8.9 mg/dL (8.5-10.1); CREATININE 1.3 mg/dL (0.6-1.0); POTASSIUM 4.3 mmol/L (3.5-5.1); TOTAL BILIRUBIN 0.2 mg/dL (<0.1-1.0); TOTAL PROTEIN 6.5 g/dL (6.4-8.2)
[2018-03-31 09:48] LABS: DIRECT BILIRUBIN 0.1 mg/dL (<0.1-0.3)
[2018-03-31 11:14] VITALS: BP 113/55
[2018-03-31 15:58] VITALS: BP 130/59
[2018-03-31 19:57] VITALS: BP 137/66
[2018-04-01 03:49] VITALS: BP 140/68
[2018-04-01 09:30] VITALS: BP 143/73
[2018-04-01 16:09] VITALS: BP 138/75
[2018-04-01 19:19] VITALS: BP 133/67
[2018-04-02 03:28] VITALS: BP 124/69
[2018-04-02 08:00] VITALS: BP 147/68
[2018-04-02 16:00] VITALS: BP 132/64
[2018-04-02 19:30] VITALS: BP 125/56
[2018-04-03 04:57] VITALS: BP 103/53
[2018-04-03 09:32] VITALS: BP 123/62
[2018-04-03 17:37] VITALS: BP 132/71
[2018-04-03 20:00] VITALS: BP 133/67
[2018-04-04 05:55] LABS: HEMATOCRIT 35.9 % (37.0-47.0); HEMOGLOBIN 11.7 gm/dL (12.0-15.0); MCH 30.1 pg (26.0-34.0); MCHC 32.7 g/dL (28.0-37.0); RBC 3.9 mil/uL (4.20-5.00); RDW 15.9 % (10.5-14.5); WBC 10.9 thou/uL (4.0-11.0)
[2018-04-04 06:01] LABS: ALBUMIN 2.5 g/dL (3.4-5.0); CALCIUM 8.8 mg/dL (8.5-10.1); CREATININE 1.5 mg/dL (0.6-1.0); POTASSIUM 4.5 mmol/L (3.5-5.1); TOTAL BILIRUBIN 0.2 mg/dL (<0.1-1.0); TOTAL PROTEIN 6.3 g/dL (6.4-8.2)
[2018-04-04 08:01] VITALS: BP 136/67
[2018-04-04] MEDS ORDERED: OLANZAPINE ODT5 MG SUBLING (14:15)
[2018-04-04] MEDS ORDERED: HYDROCODON-ACE1 EAC7 PO (14:15)
[2018-04-04] MEDS ORDERED: ENOXAPARIN30 MG/0.1 SUBQ (14:15)
[2018-04-04] MEDS ORDERED: LISINOPRIL20 MG PO (14:15)
[2018-04-04] MEDS ORDERED: SEROQUEL 100 M100 M1 PO (14:23)
[2018-04-04] MEDS ORDERED: SEROQUEL300 MG PO (14:23)
[2018-04-04 19:31] VITALS: BP 95/53
== END 2018-04-04 21:47 | DRG 535 ==
LOC: ER 22:58 → 4W 03-30 00:28 → EROBS 03-30 00:28 → 4W 03-30 01:45
PROVIDERS: Emergency Medicine; Internal Medicine; Psychiatry & Neurology Psychiatry
DX: S72.112A Displaced fracture of greater trochanter of left femur, initial encounter for closed fracture (principal); E43 Unspecified severe protein-calorie malnutrition; F20.0 Paranoid schizophrenia; N39.0 Urinary tract infection, site not specified; J44.9 Chronic obstructive pulmonary disease, unspecified; W18.39XA Other fall on same level, initial encounter; I48.0 Paroxysmal atrial fibrillation; E03.9 Hypothyroidism, unspecified; T42.6X1A Poisoning by other antiepileptic and sedative-hypnotic drugs, accidental (unintentional), initial encounter; I12.9 Hypertensive chronic kidney disease with stage 1 through stage 4 chronic kidney disease, or unspecified chronic kidney disease; N18.3 Chronic kidney disease, stage 3 (moderate); H91.90 Unspecified hearing loss, unspecified ear; E53.8 Deficiency of other specified B group vitamins; K59.09 Other constipation; M51.36 Other intervertebral disc degeneration, lumbar region; M51.34 Other intervertebral disc degeneration, thoracic region; I25.10 Atherosclerotic heart disease of native coronary artery without angina pectoris; E11.22 Type 2 diabetes mellitus with diabetic chronic kidney disease; D64.9 Anemia, unspecified; G25.81 Restless legs syndrome; F03.90 Unspecified dementia, unspecified severity, without behavioral disturbance, psychotic disturbance, mood disturbance, and anxiety; Z90.49 Acquired absence of other specified parts of digestive tract; Z90.89 Acquired absence of other organs; Z87.01 Personal history of pneumonia (recurrent); Z79.899 Other long term (current) drug therapy; Z79.82 Long term (current) use of aspirin; Z88.0 Allergy status to penicillin; Z88.8 Allergy status to other drugs, medicaments and biological substances; Y93.89 Activity, other specified; Y92.89 Other specified places as the place of occurrence of the external cause; Y99.8 Other external cause status; Z68.25 Body mass index [BMI] 25.0-25.9, adult
CPT/HCPCS: 10040